=== PATIENT | female | born 1945 | race Two or more races ===

== ENCOUNTER 2016-10-10 15:55 | Inpatient (IN) | payer MEDICARE ==
--- NOTE | ~2016-10-10 | CN ---
Consultation Report [facility] [address] [place]. [address] NAME: LUCÍA BHATIA : 41 STATUS : ADM IN PAT#: [id number] AGE: 71 ADM/REG DATE : 10/10/16 MR#: [id number] REPORT SERV DATE: 10/17/16 DICTATED BY: BERNA TERRELL DATE: 10/16/16 REPORT STATUS : Draft TRANSCRIBED BY: MODL DATE: 10/16/16 NEPHROLOGY CONSULTATION NEPHROLOGY CONSULT FROM DR. BORJAS. CONSULT IS FOR ACUTE KIDNEY INJURY. DATE OF CONSULTATION: HISTORY OF PRESENT ILLNESS: Ms. Bhatia is a 71-year-old female, [place], who now resides in [place], [place]. She has a past history of diabetes, hypertension, dyslipidemia, acid reflux as well as hernia, retinal surgery, and obesity. She at home takes losartan, metformin, Zocor, and omeprazole and developed the onset of chest pain and orthopnea about six months ago, which progressed. She did not tell her family for some time, but as symptoms worsen, she was admitted to [facility] on 10/11/[address]-elevation MD. She had a cardiac catheterization, which showed multivessel disease with moderate mitral regurgitation and then EF preserved at 55%. She underwent a two-vessel CABG with Dr. Borjas on 10/13/2016 with a cross-clamp time of 49 minutes and did have an OZZY stage II with creatinine that ángel from baseline 0.8 up to 1.9. It has been steadily improving and fell to 1.8 yesterday and 1.56 this morning. Her urine output was low yesterday, and Prakash catheter was placed with immediate release of 300 mL of retained urine, and she has been urinating well since that time. Today, she was noted to have worsening hypernatremia and notably worsening hyperkalemia with potassium of 6. Of importance this was a fingerstick BG as she was difficult to stick. Repeat fingerstick BG second time was reported the potassium of 6.5, not grossly hemolyzed. The patient herself feels sleepy and complains of diffuse soreness and mild dyspnea. PAST MEDICAL HISTORY: reviewed in the HPI. MEDICATIONS: Reviewed in the HPI. Her recent medications she has been on an increasing doses of Lasix from 20 to 40 mg p.o. and was just given 40 mg of IV Lasix. ALLERGIES: SHE HAS NO KNOWN DRUG ALLERGIES. FAMILY HISTORY: Negative for renal disease. SOCIAL HISTORY: The patient is . She has eight children. She has no smoking or drinking and is primarily [place]an speaking. REVIEW OF SYSTEMS: Reviewed and negative except for pertinent positives in the HPI. PHYSICAL EXAMINATION: VITAL SIGNS: Temperature 96.8, pulse 100, blood pressure 132/74, O2 saturation of 94% on room air. Consultation Report [address] [place]. [address] NAME: LUCÍA BHATIA : 43 STATUS : ADM IN PAT#: [id number] AGE: 71 ADM/REG DATE : 10/10/16 MR#: [id number] REPORT SERV DATE: 10/17/16 DICTATED BY: BERNA TERRELL DATE: 10/16/16 REPORT STATUS : Draft TRANSCRIBED BY: NEAL DATE: 10/16/16 GENERAL: She is a tired-appearing female, in no immediate distress. She has normal work of breathing. She appears somewhat sedate. HEENT: Her sclerae anicteric. Mucous membranes moist. STERNOTOMY: Medially. CARDIOVASCULAR: S1, S2. Regular rate and rhythm without murmurs, rubs, or gallops. LUNGS: Somewhat diminished, but no wheezing. ABDOMEN: Soft, nontender. She has 1+ anasarca Prakash catheter with clear yellow urine. Today's chest x-ray is pending, yesterday, it did show worsening right-sided pleural effusion and some atelectasis. KUB showed moderate stool, but nonobstructive gas pattern. LABS: Sodium 128, down from 134, down from 143; potassium 6 up to 4.9; chloride 95; bicarb of 20; BUN 59; creatinine 1.56, which is down; glucose 367; magnesium is 2.9. ASSESSMENT AND PLAN: 1. Possible hyperkalemia, rule out spurious with fingersticks which I suspect given her steadily improving creatinine and her nonoliguric state. I think it is reasonable to give her Lasix to help kaliuresis as well as needed diuresis and I think 40 IV b.i.d. quite reasonable, keep Prakash catheter. She is also getting insulin now for her hyperglycemia, which should help temporize her hyperkalemia as well. I have written for one dose of calcium, pending third repeat lab and have asked the lab specifically again not to do fingerstick. She will also have afternoon labs to confirm that potassium is indeed okay. 2. Acute kidney injury with acute tubular necrosis status post CABG stage II improving. No current dialysis needs. Again I suspect her hyperkalemia is spurious and she is nonoliguric. 3. Coronary artery disease, status post coronary artery bypass graft. 4. Diabetes, hyperglycemia, insulin. 5. Hypertension. Controlled, not on [facility] or [facility]. Thank you very much for this consult. Case was discussed with nurse. Partners to follow. CLAUDIA/NEAL Berna Terrell MD / [id number] CC: MD Yas Tellez
--- NOTE | ~2016-10-10 | OP ---
Record Of Operation [address] [place]. [address] NAME: LUCÍA BHATIA : 43 STATUS : ADM IN PAT#: [id number] AGE: 71 ADM/REG DATE : 10/10/16 MR#: [id number] REPORT SERV DATE: 10/14/16 DICTATED BY: RANGEL BORJAS DATE: 10/13/16 REPORT STATUS : Draft TRANSCRIBED BY: MODL DATE: 10/13/16 DATE OF PROCEDURE: 10/13/2016 ATTENDING PHYSICIAN: Dr. Rangel Borjas. REFERRING PHYSICIAN: Dr. Thomas in [place]. TIMBER SPRINKLER: AUGIE Urbina. ANESTHESIOLOGIST: Dr. Jevon Hull. PREOPERATIVE DIAGNOSES: 1. STEMI. 2. Three-vessel coronary disease. 3. Diabetes mellitus. 4. Hypertension. 5. Hyperlipidemia. 6. Morbid obesity. 7. Mild to moderate MR. POSTOPERATIVE DIAGNOSES: 1. STEMI. 2. Three-vessel coronary disease. 3. Diabetes mellitus. 4. Hypertension. 5. Hyperlipidemia. 6. Morbid obesity. 7. Mild to moderate MR. OPERATION PROCEDURE PERFORMED: 1. Median sternotomy. 2. Extracorporeal circulation. 3. Urgent coronary artery bypass grafting x2, left internal mammary artery, left anterior descending, reverse greater saphenous vein graft to obtuse marginal #1. 4. Transesophageal echo. 5. Endoscopic vein harvest to right leg. 6. Prevena dressing placement. COMPLICATIONS: None. TUBES AND DRAINS: A 24-Albanian Ruddy to the left pleural space. A 32-straight mediastinal chest tube. Atrial and ventricular wires. POSTOPERATIVE CONDITION: Stable to the CVICU. Was weaned from cardiopulmonary bypass on no inotropic support. Cross-clamp 32 minutes. Record Of Operation [place] [address] [facility]. [address] NAME: LUCÍA BHATIA : 43 STATUS : ADM IN PAT#: [id number] AGE: 71 ADM/REG DATE : 10/10/16 MR#: [id number] REPORT SERV DATE: 10/14/16 DICTATED BY: RANGEL BORJAS DATE: 10/13/16 REPORT STATUS : Draft TRANSCRIBED BY: MODL DATE: 10/13/16 Total cardiopulmonary bypass time 49 minutes. URBAN which showed normal EF with mild MR, no AI, preserved wall motion. INTRAOPERATIVE FINDINGS: Very small diffusely diseased targets. Left anterior descending was approximately 1.75 mm. Obtuse marginal #1 was 1.75 mm. The diagonal was 1 mm in the PDA. There was no real PDA discernible on the epicardial surface of the heart. It was diffuse betsey disease. The vein was 3 to 4 mm and small. DETAILS OF CARDIOPULMONARY BYPASS GRAFT: 1. Graft #1. MANUEL to the left anterior descending was 1.75 mm graft. 2. Graft #2. Reverse greater saphenous vein graft to obtuse marginal #1. This was a 1.75 mm target. There was excellent Doppler signals both pre and post protamine. INDICATIONS FOR PROCEDURE: Ms. Bhatia is a 71-year-old female, who presented with acute coronary syndrome with NSTEMI, was taken to the laboratory tech, found to have a severe three- vessel disease. Her ST-segment elevations resolved in the laboratory tech prior to the catheterization lab in [facility]. She was ultimately transferred for definitive management to [place]. The patient was seen and evaluated. She had mild to moderate or moderate MR on her cath and a transesophageal echo was performed to better evaluate the valve, and showed pqnt-co-oraxixwx mitral disease with normal-appearing leaflets and good coaptation. I did not feel that it was appropriate to address this valve. Risks, benefits, and alternatives were discussed with the patient including but not limited to, bleeding, infection, stroke, , heart attack, need for future operations. All questions were answered. STS risk score was calculated and discussed with the patient. Risk less than 5% mortality and less than 20% mortality morbidity mortality were discussed with the patient. The patient was taken to the operating room. DETAILS OF PROCEDURE: The patient was brought to the operating room, placed supine on the operating room table. After satisfactory induction of general endotracheal anesthesia, she was prepped and draped in the usual sterile fashion. Median sternotomy was performed. Skin and subcutaneous tissues were divided. Clavipectoral fascia was divided. The sternum was opened in the midline. Sternal retractor was placed. Thymic tissue was divided in the midline. The pericardium was opened in the midline and at the diaphragm. Pericardial well was created. Ascending aorta was inspected. Sternal retractor was removed. The Rultract retractor was replaced and the internal mammary artery was harvested in a pedicle fashion and the left takeoff under the subclavian vein in the bifurcation of the diaphragm. Systemic heparinization was achieved. After 3 minutes, the pedicle was clipped and divided. The bifurcation of the diaphragm was infiltrated with papaverine. While this was ongoing, endoscopic vein harvest was then performed of the right leg. The Rultract retractor was removed. Sternal retractor was placed. A 24-Albanian Ruddy was placed through the left pleural space to exteriorize. The ascending aorta was cannulated through dual pursestring at the base of the innominate artery. Antegrade root vent cardioplegia tack was placed and a dual stage venous cannula was placed through a pursestring in the right atrial appendage. After documenting appropriate ACT, cardiopulmonary bypass was initiated. The targets were inspected. Targets were found as discussed in the findings. The heart was arrested with cold antegrade cardioplegia, switching to cold antegrade cardioplegia every 15 to 20 minutes Record Of Operation [place] [address] [facility] [place]. [address] NAME: LUCÍA BHATIA : 43 STATUS : ADM IN PAT#: [id number] AGE: 71 ADM/REG DATE : 10/10/16 MR#: [id number] REPORT SERV DATE: 10/14/16 DICTATED BY: RANGEL BORJAS DATE: 10/13/16 REPORT STATUS : Draft TRANSCRIBED BY: NEAL DATE: 10/13/16 throughout the remainder of the cross clamp. After arrest, heart was elevated and obtuse marginal #1 was identified. A soft spot was identified on the epicardial surface. It was opened and extended with coronary scissors and a running continuous anastomosis was performed using 8-0 Surgipro after spatulating and cutting the vein length. Vein was then measured, cut to length. Proximal aortotomy was performed, enlarged with a 4 mm punch and a running continuous anastomosis was performed using 6-0 Prolene. Vein marker was placed. The MANUEL was then brought through a wide V in the pericardium. The LAD was opened on the epicardial surface of the heart. It is a large coronary scissors. The mammary was cut to length spatulated and a running continuous anastomosis was performed using 8-0 Surgipro. Epicardial pedicle was attached to the heart in two places and then the bulldog was removed. There was excellent flow in the graft and pre and post the anastomosis graft. Vein graft was de-aired cross-clamp was removed. Atrial and ventricular pacing wires were placed. The ventilation was resumed. The patient was weaned from cardiopulmonary bypass without incident. Protamine was administrated. The patient was decannulated. All cannulation sites were oversewn with 4-0 Prolene. The thymic tissue was loosely reapproximated over the ascending aorta and the pericardium was loosely reapproximated over the right ventricle with 2-0 silks and a 32-Albanian chest tube was placed beneath the sternum. Hemostasis was obtained. The sternum was reapproximated using eight #6 sternal wires. Some of these were double wires. Clavipectoral fascia was reapproximated using running #1 StrataFix and the skin and subcutaneous tissues were closed using continuation of StrataFix with a Quill. Prevena dressing was placed as a dressing. The patient was then transferred to the CVICU in critical, stable condition. WMC/MODL Rangel Borjas MD / [id number] CC: MD DERRICK Tellez M.D.
--- NOTE | ~2016-10-10 | OP ---
Record Of Operation [facility] [address] [place]. [address] NAME: LUCÍA BHATIA : 41 STATUS : ADM IN [facility]#: [id number] AGE: 71 ADM/REG DATE : 10/10/16 MR#: [id number] REPORT SERV DATE: 10/19/16 DICTATED BY: KELLY KUMAR DATE: 10/19/16 REPORT STATUS : Draft TRANSCRIBED BY: MODL DATE: 10/19/16 DATE OF PROCEDURE: 10/19/2016 TIME: 1415 hours. PROCEDURE: Intubation. INDICATION: Cardiac arrest. DESCRIPTION OF PROCEDURE: Pre-oxygenated with 100% oxygen and monitored by blood pressure, EKG, and pulse oximetry. A #8 endotracheal tube passed under direct endoscopic vision to 23 cm. Tube seen to enter between cords. Confirmed by end-tidal CO2 monitor and chest x-ray. Good breath sounds bilaterally. Sat 100% post. PROCEDURE #2: Placement of right internal jugular venous line. INDICATION: For access emergent during arrest. DESCRIPTION OF PROCEDURE: Chlorhexidine prep and Xylocaine 1% used for local anesthesia. Right IJ entered with seeker needle. Catheter placed over guidewire via modified Seldinger technique to [address] Sterile technique used throughout. Confirmed by chest x-ray. CARLOS MANUEL/NEAL Kelly Kumar M.D. / [id number] CC: Rangel Boggs MD
--- NOTE | ~2016-10-10 | CN ---
Consultation Report [facility] [address] [place]. [address] NAME: LUCÍA BHATIA : 41 STATUS : ADM IN [facility]#: [id number] AGE: 71 ADM/REG DATE : 10/10/16 MR#: [id number] REPORT SERV DATE: 11/01/16 DICTATED BY: LISHA LIPSCOMB DATE: 10/31/16 REPORT STATUS : Draft TRANSCRIBED BY: MODL DATE: 10/31/16 CONSULTATION REPORT DATE OF CONSULTATION: 10/31/2016 REASON FOR CONSULT: Blue discoloration of left foot and toes. HISTORY: The patient is a 71-year-old female who has been at [facility] since 10/10/2016. She came in for STEMI and underwent urgent coronary bypass by Dr. Boggs. She was recovering on the floor, had an episode of bradycardia, and an episode of cardiac arrest with CPR. She was subsequently intubated and transferred to the ICU. She has since been deescalated and sent to the [facility]. I received a call from Dr. Denia martins about the condition of the patient's left foot. There was concern for a discoloration of the toes in the plantar surface. I was up here with family including the daughter. She has been with her mom almost daily. She should that the discoloration on the foot has been present for about a week and a half and at the plantar surface is actually improving and clearing up. There is discoloration of the first and fourth toes on the left that has not gotten better. I asked the daughter about any walking complaints prior to hospitalization and she endorsed that her mother said that she had "tired legs," but no discrete pain in the calf, thighs, or buttocks on ambulation. PAST MEDICAL HISTORY: Fra-yepopwy-uivyawqrb type 2 diabetes, hypertension, diabetic retinopathy, dyslipidemia, and gastroesophageal reflux disease. PAST SURGICAL HISTORY: Significant for retinal surgery and umbilical hernia repair. She has also just recently had coronary artery bypass grafting by Dr. Boggs. FAMILY HISTORY: Unremarkable. SOCIAL HISTORY: No tobacco, alcohol, or drug abuse. ALLERGIES: NONE. PHYSICAL EXAMINATION: VITAL SIGNS: Currently, her pulse is 116 and in atrial fibrillation, blood pressure is 125/75, respirations are 20, and oxygen saturations 91%. She is on nasal cannula oxygen. GENERAL: The patient is in the hospital bed in supine position. She is assisted in communication by her family members. She is somewhat lethargic, but easy to arouse. She does not complain of pain at any one site. HEENT: Her head is normocephalic and atraumatic. Pupils are equally round and reactive to light. RESPIRATIONS: Nonlabored, but shallow. NECK: Her neck is supple without JVD or lymphadenopathy. CHEST: Equal expansion bilaterally with some wheezes and coarse breath sounds. Consultation Report [place] [id number] [address] NAME: LUCÍA BHATIA : 41 STATUS : ADM IN [facility]#: [id number] AGE: 71 ADM/REG DATE : 10/10/16 MR#: [id number] REPORT SERV DATE: 11/01/16 DICTATED BY: LISHA LIPSCOMB DATE: 10/31/16 REPORT STATUS : Draft TRANSCRIBED BY: NEAL DATE: 10/31/16 ABDOMEN: Obese, soft, and nondistended. VASCULAR: She has palpable radial pulses bilaterally. Her femoral pulses are palpable bilaterally. On the affected foot, there is a purple discoloration of the first toe and the fourth toe. There is some mottling at the plantar aspect confined to the first 1 to 2 cm from the base of the metatarsals. According the family, this is improved from last week. She has easily to discern Doppler signals at the posterior tibial and peroneal, the peroneal being biphasic. IMAGING: She had a carotid duplex at the end of September, which did not show carotid stenosis. She has recently had a venous duplex showing right brachial and basilic vein DVT associated with PICC line. IMPRESSION AND PLAN: The patient is a 71-year-old diabetic female with some discoloration of her toes after cardiac surgery. She is on Coumadin and therapeutic INR of greater than 2. Currently, she is in the IMCU and recovering from her surgery and her code event. There is no indication for acute surgical intervention from a vascular standpoint. We will monitor her progress during her hospital stay, and when she is more stable, we may consider arteriography if her foot does not improve. I appreciate the consult. ISIDRO/NEAL Lisha Lipscomb MD / [id number] CC: Rangel Boggs MD
--- NOTE | ~2016-10-10 | OP ---
Record Of Operation [facility] [address] [place] [address] NAME: LUCÍA BHATIA : 41 STATUS : ADM IN [facility]#: [id number] AGE: 71 ADM/REG DATE : 10/10/16 MR#: [id number] REPORT SERV DATE: 11/01/16 DICTATED BY: ANTOINE WATERS DATE: 11/01/16 REPORT STATUS : Draft TRANSCRIBED BY: MODL DATE: 11/01/16 DATE OF PROCEDURE: 11/01/2016 TITLE OF PROCEDURE: Arterial line placement. INDICATION: Cardiac arrest and hemodynamic monitoring. PROCEDURE NOTE: Post cardiopulmonary resuscitation, arterial access is needed for hemodynamic monitoring. The patient's left groin was prepped and draped in a sterile fashion. An Arrow arterial line was introduced into the left femoral artery, not under ultrasound guidance. The catheter was threaded over the guidewire. The needle was removed with appropriate pulsatile blood return. The catheter was then sutured into place to the skin, and a sterile dressing applied. DEON/NEAL Antoine Waters MD / [id number] CC: Rangel Boggs MD
--- NOTE | ~2016-10-10 | CN ---
Consultation Report [facility] [address] [place]. [address] NAME: LUCÍA BHATIA : [birth year] STATUS : ADM IN [facility]#: [id number] AGE: 71 ADM/REG DATE : 10/10/16 MR#: [id number] REPORT SERV DATE: 10/11/16 DICTATED BY: AZAM LOZA DATE: 10/11/16 REPORT STATUS : Draft TRANSCRIBED BY: MODL DATE: 10/11/16 CARDIOLOGY CONSULTATION DATE OF CONSULTATION: 10/11/2016 REQUESTING PHYSICIAN: Rangel Boggs M.D. REASON FOR CONSULTATION: Evaluation of mitral regurgitation in a 71-year-old woman with recently diagnosed multivessel coronary artery disease. HOSPITAL COURSE: Ms Bhatia is a 71-year-old woman who is a Citizen Of [place] National and Sudanese- speaking only. The patient recently presented to [facility], where she was apparently diagnosed with non-ST segment elevation myocardial infarction. The patient underwent cardiac catheterization and was found to have multivessel coronary artery disease. The disease described in the catheterization report is of a diffuse and severe nature. The patient also carries a diagnosis of type 2 diabetes. Due to her multivessel disease and diagnosis of diabetes, the patient was transferred to [facility] for consideration of coronary artery bypass grafting surgery. An echocardiogram report from [place] indicates the presence of moderate mitral valve regurgitation with mitral annular calcification. The Cardiology Service has been consulted to perform transesophageal echocardiography for more thorough evaluation of the patient's mitral valve. At this time, the patient is without cardiovascular complaints. She has been on a nitroglycerin drip for relief of chest pain, but at this time, she reports no significant dyspnea or chest pain. PAST MEDICAL HISTORY: 1. Noninsulin-dependent type 2 diabetes. 2. Hypertension. 3. Diabetic retinopathy. 4. Dyslipidemia. 5. Gastroesophageal reflux disease. PAST SURGICAL HISTORY: Significant for retinal surgery, not otherwise specified and umbilical hernia repair. FAMILY HISTORY: Noncontributory. 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 She has eight living children. She has no significant history of tobacco, alcohol, or drug use. ALLERGIES: THE PATIENT HAS NO KNOWN MEDICATION ALLERGIES. Consultation Report [facility] [address] [place]. [address] NAME: LUCÍA BHATIA DOB: [birth year] STATUS : ADM IN PAT#: [id number] AGE: 71 ADM/REG DATE : 10/10/16 MR#: [id number] REPORT SERV DATE: 10/11/16 DICTATED BY: AZAM LOZA DATE: 10/11/16 REPORT STATUS : Draft TRANSCRIBED BY: NEAL DATE: 10/11/16 HOME MEDICATIONS: The patient's home medications include losartan 50 mg p.o. daily, metformin 850 mg p.o. twice daily, omeprazole 20 mg p.o. daily, and simvastatin 40 mg p.o. at bedtime. REVIEW OF SYSTEMS: A complete ten-system review was performed with the assistance of the patient's daughter, who assists as a floor framer. This is noncontributory except for the pertinent positives and negatives noted in the history of present illness above. PHYSICAL EXAMINATION: VITAL SIGNS: Temperature is 98.1 degrees Fahrenheit, blood pressure is 126/60 mmHg, heart rate is 63 beats per minute and regular, respirations 18, and oxygen saturation is 99% on a 2 L nasal cannula. CONSTITUTIONAL: The patient is an obese woman, in no acute distress. EYES: PERRL, EOMI, clear conjunctiva. HEAD/MNT: NCAT with moist mucous membranes and grossly normal hard and soft palate. NECK: Supple with no obvious thyromegaly or lymphadenopathy CARDIOVASCULAR: There is a regular rhythm with a normal S1 and a physiologically split second heart sound. There is a very faint 1/6 regurgitant murmur noted at the axilla, though it is heard very faintly throughout the rest of the precordium. PULMONARY: Clear to auscultation bilaterally with no wheezing, rales, rhonchi, or dullness to percussion. ABDOMINAL: Soft, non-tender, non-distended with no hepatosplenomegaly noted. EXTREMITIES: No clubbing, cyanosis or edema. MUSCULOSKELETAL: Grossly normal strength and range of motion in all extremities. INTEGUMENTARY: Skin appears intact with no bruises, wounds or active lesions noted NEURO/PSYCH: Alert and oriented x3, with no dysarthria, facial droop or lateralizing weakness noted. TWELVE-LEAD EKG: The 12-lead EKG shows sinus rhythm with diffuse ST/T-wave changes in the precordial leads suggestive of ischemia. The QTc is borderline prolonged at 473 milliseconds. LABORATORY DATA: Metabolic profile shows a sodium of 142, potassium 4.0, chloride is 106, CO2 is 28, BUN 19, creatinine is 0.8. Glucose is 141, calcium 8.1, albumin is 3.0. LFTs are grossly normal. CBC shows a white blood cell count of 9.9, hemoglobin 9.9, hematocrit 30, and platelets 252. INR is 1.1. CHEST X-RAY: The chest x-ray shows clear lungs with no acute cardiopulmonary process. Mild calcification of the aortic knob is noted. ASSESSMENT AND PLAN: 1. Multivessel coronary artery disease: The patient awaits coronary artery bypass grafting surgery. She has been started on aspirin 81 mg p.o. daily. The patient is on atorvastatin 40 mg p.o. at bedtime. She has been started on amiodarone for prophylaxis Consultation Report [address] [address] NAME: LUCÍA BHATIA : 41 STATUS : ADM IN [facility]#: [id number] AGE: 71 ADM/REG DATE : 10/10/16 MR#: [id number] REPORT SERV DATE: 10/11/16 DICTATED BY: AZAM LOZA DATE: 10/11/16 REPORT STATUS : Draft TRANSCRIBED BY: NEAL DATE: 10/11/16 of atrial fibrillation. We will work up mitral regurgitation as outlined below and proceed with surgery this or as per recommendations of the Cardiovascular Surgery Service. 2. Mitral regurgitation: A transesophageal echocardiogram will be performed tomorrow morning. The patient did have a full breakfast this morning. Surgery has been delayed until morning. Further recommendations to follow. 3. Type 2 diabetes: Internal Medicine is following. 4. Hypertension: The patient's blood pressure is reasonably well controlled at this time. Thank you for allowing me to participate in the care of Ms Bhatia. The Cardiology Service will continue to follow the patient closely during this hospitalization. SINGH/NEAL Azam Loza MD / [id number] CC: MD ANGELITA Tellez JULIA
--- NOTE | ~2016-10-10 | OP ---
Record Of Operation [facility] [address] [place] [address] NAME: LUCÍA BHATIA : 41 STATUS : ADM IN [facility]#: [id number] AGE: 71 ADM/REG DATE : 10/10/16 MR#: [id number] REPORT SERV DATE: 11/01/16 DICTATED BY: ANTOINE WATERS DATE: 11/01/16 REPORT STATUS : Draft TRANSCRIBED BY: MODL DATE: 11/01/16 DATE OF PROCEDURE: 11/01/2016 TITLE OF PROCEDURE: Endotracheal intubation. INDICATION: Respiratory failure and cardiac arrest. PROCEDURE NOTE: The patient was in a flat position, undergoing cardiopulmonary resuscitation. No sedation was needed. The patient was ventilated using an Ambu bag. A GlideScope was used and inserted into the oropharynx, at which time there was a grade 2 view of the vocal cords. A 7.5-Austrian endotracheal tube was inserted and visualized going to the vocal cords. The stylet was removed. Colorimetric change was visualized on the CO2 meter. Endotracheal tube was placed at 23 cm measured at the teeth. I was present for the entire procedure. Chest x-ray is ordered to assess for pneumothorax and verify endotracheal tube placement. The patient tolerated the procedure well. DEON/NEAL Antoine Waters MD / [id number] CC: Rangel Boggs MD
--- NOTE | ~2016-10-10 | CN ---
Consultation Report [facility] [address] [place]. [address] NAME: LUCÍA BHATIA : 41 STATUS : ADM IN [facility]#: [id number] AGE: 71 ADM/REG DATE : 10/10/16 MR#: [id number] REPORT SERV DATE: 10/11/16 DICTATED BY: YOLANDA JAFFE DATE: 10/10/16 REPORT STATUS : Draft TRANSCRIBED BY: MODL DATE: 10/10/16 CONSULTATION REPORT DATE OF CONSULTATION: 10/10/2016 REASON FOR CONSULTATION: Consulted for diabetes management. REQUESTING PHYSICIAN: Juan Luis Manuel NP, for Dr. Michael Flannery. IDENTIFYING DATA: PCP, Dr. Yas Guidry. LEAD MAINTENANCE TECHNICIAN: Jayce Thomas M.D. HISTORY OF PRESENT ILLNESS: This is a pleasant 71-year-old Kos[place] female who presented to [facility] with chest pain and shortness of breath. Her EKG there showed some ST elevation in AVR, V1 and ST depression in inferior leads. She has no previous cardiac history according to discussion with the daughter. We have been consulted to help manage her blood sugars preop and postoperatively. It appears that the patient takes metformin at home and also on insulin for which she was not sure exactly what dose. The patient's history was obtained through interview with the daughter as Ms Lucía Bhatia does not speak any Palestinian. PAST MEDICAL HISTORY: 1. Diabetes type 2. 2. Hyperlipidemia. 3. GERD. 4. Diabetic retinopathy. 5. Chest pain with ID on this admission to [facility]. HOME MEDICATIONS: 1. Cozaar 50 mg p.o. daily. 2. Metformin 850 mg p.o. with breakfast and supper. 3. Prilosec 20 mg p.o. daily. 4. Zocor 40 mg p.o. at bedtime, and upon discussion with the daughter, she relates that the patient takes Humulin regular insulin 15 units t.i.d. with meals. 5. She also relates that the patient takes Lantus 60 units at h.s. at 5:00 p.m. ALLERGIES: NO KNOWN ALLERGIES. SOCIAL HISTORY: The patient is for approximately 58 years, lives in a single-level home. She lives with one of her daughters, and she travels back and forth from [facility] to [place]. No smoking, alcohol, or illicit drug use. She has 12 children, eight of whom are still living. Consultation Report [place] [id number] [facility] [place]. [address] NAME: LUCÍA BHATIA : 41 STATUS : ADM IN PAT#: [id number] AGE: 71 ADM/REG DATE : 10/10/16 MR#: [id number] REPORT SERV DATE: 10/11/16 DICTATED BY: YOLANDA JAFFE DATE: 10/10/16 REPORT STATUS : Draft TRANSCRIBED BY: MODToib DATE: 10/10/16 FAMILY HISTORY: Mother was at 82 years old. Her father was at 55 years old. Daughter relates that there is an unknown history because the parents did not seek any medical treatment. The patient has one brother and two half brothers, one brother is . She had four sisters for which one sister is . PAST SURGICAL HISTORY: 1. Eye surgery in [place] for cataracts in 2014. 2. Hernia repair approximately 17 years ago. 3. The daughter states that the patient had all her children naturally at home. REVIEW OF SYSTEMS: Negative other than what is in HPI. The patient complains of no chest pain. No shortness of breath. No nausea and vomiting. No abdominal pain. No fever. Displays no agitation at the present time. PHYSICAL EXAMINATION: VITAL SIGNS: From today, blood pressure 144/66, respiratory rate 19, heart rate 63, and O2 saturation 98%. GENERAL: This is an obese, Kosovan, elderly female, resting in bed, in no acute distress. Her daughter is asking questions regarding this interview, the patient speaks no Palestinian. NEURO: Her head is atraumatic and normocephalic. She is alert and oriented x3. Her cranial nerves II through XII are intact. Mood is pleasant and appropriate. NECK: Supple. Trachea is midline. No JVD noted. No obvious thyromegaly or lymphadenopathy. EENT: Her sclerae are nonicteric. Pupils are equal and reactive to light. Nares are patent. Mucous membranes moist. Tongue midline without deviation. Soft palate rises equally on phonation. CHEST: No tenderness to palpation. LUNGS: Clear to auscultation bilaterally. She has normal respiratory effort. CARDIOVASCULAR: S1 and S2. Positive murmur. On telemetry, she runs a sinus rhythm with a depressed T-wave and a rate of 63. ABDOMEN: Obese, soft, and nontender with bowel sounds active. No organomegaly palpable. Last bowel movement was on 10/09/2016. EXTREMITIES: Normal distal pulses, slightly diminished. No edema. No calf tenderness. SKIN: Warm and dry. No unusual rashes or lesions. Normal color and turgor. PSYCH: The patient is pleasant and cooperative. The daughter does relate that the patient is very nervous about upcoming surgery. LABORATORY DATA: Pending. There are some labs ordered per Juan Luis Manuel and Dr. Flannery. The labs have just resulted. Sodium is 140, potassium is 4.4, chloride is 104, CO2 is 29, BUN is 19, creatinine 0.85, GFR 68, glucose 193, calcium 8.1, and magnesium 1.9. White blood cell 10.5, red blood cell 3.49, hemoglobin 9.6, and hematocrit 29.9. PTT 85.6, PT 14.9, and INR 1.2. Platelet count 258. Consultation Report [address] [address] NAME: LUCÍA BHATIA : 41 STATUS : ADM IN PAT#: [id number] AGE: 71 ADM/REG DATE : 10/10/16 MR#: [id number] REPORT SERV DATE: 10/11/16 DICTATED BY: YOLANDA JAFFE DATE: 10/10/16 REPORT STATUS : Draft TRANSCRIBED BY: NEAL DATE: 10/10/16 On 10/09/2016, chest x-ray was obtained at [facility], which displayed mild cardiomegaly and interstitial edema. On 10/10/2016, EKG displays normal sinus rhythm, T- wave abnormality, consider lateral ischemia, prolonged QT, and displays an abnormal EKG. Left heart left heart catheterization at [facility] on 10/09/2016 showed severe triple-vessel diffuse coronary artery disease, typical of diabetes with heavily calcified vessels. The LAD showed: 1. Proximal 80%. 2. Mid 99%. 3. Diagonal 80% to 90%. 4. Circumflex 80% to 90%. 5. RCA mid 80%. Distal RCA is COIL WINDER HAND with LVEH 55%, noted severely calcified mitral valve and moderate regurgitation. ASSESSMENT AND PLAN: 1. Diabetes type 2. The patient is normally on metformin at home and insulin. The daughter states that she normally takes Humulin regular insulin 15 units t.i.d. with meals and Lantus 60 units subcutaneously daily at 5:00 p.m. along with metformin 850 mg p.o. with breakfast and supper. The patient is on 1800-ADA diet. We will have nurse educator discuss diet and monitoring of the blood sugars at home, which the daughter will need to be available for translation. The patient has a hemoglobin A1c ordered. Fingerstick blood sugars are a.c. and h.s. with a sliding scale level 2 at present time and the metformin will be held. 2. Chest pain. Aware. The patient is admitted by Dr. Michael Flannery for chest pain and probable planned procedure on 10/11/2016, a CABG with VasoView URBAN, possible mitral valve repair or replacement. The patient is managed by Cardiology presently on a heparin and nitroglycerin drip and the patient will also receive Lopressor p.o. q.12 hours per Cardiology. 3. Hyperlipidemia. Aware. The patient is on Zocor at home. The patient is placed on Lipitor 40 mg p.o. at h.s. on admission. 4. Gastroesophageal reflux disease. Aware. The patient is on Prilosec and we will continue Prilosec daily. The a.m. team to follow the patient regarding diabetes. If the patient is scheduled for surgery, anticipate the patient will be placed on an insulin drip postoperatively until she is fully awake and able to the eat meals. Hospitalist may need to evaluate the use of the regular insulin with meals and her Lantus at night depending on results of blood sugars and also her hemoglobin A1c level. 5. The Hospitalist Group would like to take the time to thank you for this consultation. Please let us know if we could be of any further assistance. ARTURO Yolanda Jaffe NP Consultation Report [address] [place]. [address] NAME: LUCÍA BHATIA : 41 STATUS : ADM IN PAT#: [id number] AGE: 71 ADM/REG DATE : 10/10/16 MR#: [id number] REPORT SERV DATE: 10/11/16 DICTATED BY: YOLANDA JAFFE DATE: 10/10/16 REPORT STATUS : Draft TRANSCRIBED BY: NEAL DATE: 10/10/16 / [id number] CC: Michael Flannery M.D.
--- NOTE | ~2016-10-10 | DS ---
Discharge Summary [facility] [address] [place]. [address] NAME: LUCÍA BHATIA : 41 STATUS : DIS IN PAT#: [id number] AGE: 71 ADM/REG DATE : 10/10/16 MR#: [id number] REPORT SERV DATE: 11/15/16 DICTATED BY: RANGEL BORJAS DATE: 11/14/16 REPORT STATUS : Draft TRANSCRIBED BY: NEAL DATE: 11/14/16 Data Collection from hospitalization DISCHARGE DIAGNOSES: 1. Efp-KX-uebekotsu myocardial infarction. 2. Three-vessel coronary artery disease. 3. Diabetes mellitus. 4. Hypertension. 5. Hyperlipidemia. 6. Morbid obesity. 7. Kxio-lk-usnygegv mitral regurgitation. 8. Gastroesophageal reflux disease. 9. Diabetic retinopathy. CONSULTATIONS: 1. Yolanda Flores NP. 2. Keith Loza MD. 3. Chaparro Hansen MD. 4. Jay King M.D. 5. Neymar Lipscomb MD. 6. Dean Kumar M.D. PROCEDURES PERFORMED: 1. Median sternotomy, extracorporeal circulation. 2. Urgent coronary artery bypass grafting x2 with MANUEL to the LAD, reverse greater saphenous vein graft to the obtuse marginal. 3. Transesophageal echocardiogram. 4. Endoscopic vein harvest to the right leg, Prevena dressing placement, 10/13/2016. 5. Endotracheal intubation, 10/19/2016. 6. Endotracheal intubation, 11/01/2016. 7. Central venous catheter placement, 11/01/2016. 8. Arterial line placement, 11/01/2016. 9. Carotid blood flow study, 10/11/2016. 10.Renal ultrasound, 10/31/2016. 11.Venous Doppler ultrasound of the right upper extremity, 10/31/2016. 12.Gallbladder ultrasound, 11/01/2016. 13.Duplex lower extremity arterial ultrasound, 11/01/2016. DISPOSITION: [facility], [place], [place]. HOSPITAL COURSE: This is a 71-year-old, , hypertensive, diabetic female, who has no prior history of coronary artery disease. Her daughter noticed that she and the rest of the siblings had found out recently that her mother had been having chest pain intermittently over the past at least 7 months since February or January of last year. More recently, this had occurred at night and awakened her from a sound sleep with a feeling of profound dyspnea. On the day prior to this admission she had the onset of chest discomfort while at rest associated with shortness of breath, dyspnea, nausea but no vomiting or diaphoresis. Her family brought her to the emergency department and EKG showed ST elevation in AVR and V1 and Discharge Summary [id number] [place]. [address] NAME: LUCÍA BHATIA : 41 STATUS : DIS IN PAT#: [id number] AGE: 71 ADM/REG DATE : 10/10/16 MR#: [id number] REPORT SERV DATE: 11/15/16 DICTATED BY: RANGEL BORJAS DATE: 11/14/16 REPORT STATUS : Draft TRANSCRIBED BY: NEAL DATE: 11/14/16 a code STEMI was called by the emergency room physician. There was significant ST depression in the inferolateral leads. She had been taken to the [facility] and coronary arteriogram demonstrated significant three-vessel calcific coronary artery disease, moderate mitral regurgitation, and calcification of the mitral valve and ejection fraction of about 55%. It was felt the patient may need to undergo coronary artery bypass grafting. She was transferred here and admitted to the hospital for further evaluation and treatment. Upon admission, she was seen by Yolanda Flores NP, regarding diabetes management. It appears that the patient takes metformin at home and also is on insulin. She was not sure exactly what dose. The patient was placed on a diabetic diet. She was going to undergo diabetes education and diet would be discussed as well as monitoring of her blood sugars at home. Hemoglobin A1c was going to be checked. Level 2 sliding scale insulin was started. Metformin was held. The patient is on Zocor at home for hyperlipidemia. Lipitor was started. She was presently being managed on heparin and nitroglycerin drip. She had also received Lopressor. Plans were being made for her to proceed with surgical intervention. The following day, she was seen by Dr. Keith Loza for evaluation of mitral regurgitation in a patient with recently diagnosed multivessel coronary artery disease. Echocardiogram had indicated the presence of moderate mitral valve regurgitation with mitral annular calcification. There were no cardiovascular complaints. She had been on a nitroglycerin drip for relief of chest pain. At this time, she reported no significant dyspnea or chest pain. Chest x-ray showed clear lungs with no acute cardiopulmonary process. There was mild calcification on the aortic knob noted. Her blood pressure was reasonably well controlled at this time. The following day, there had been no issues overnight. She had no chest pain. She was still on low-dose nitroglycerin drip. A carotid blood flow study was performed. On 10/12/2016, transesophageal echocardiogram was performed by Dr. Gustabo Carlson. There was mild to potentially mild-moderate central mitral regurgitation. Bety I classification with mildly dilated mitral annulus. There was mild left atrial enlargement. There was normal left ventricular size with preserved ejection fraction of 55- 60%. There was an intact interatrial septum. Levemir was increased. On 10/13/2016, the patient was taken to the operating room where she underwent the above-mentioned procedure. She tolerated this well. There were no complications. Postoperatively, she was extubated. She had a hemoglobin A1c of 8.7. She was on Levophed. On postop day #1, she was up sitting in a chair. Long acting insulin was going to begin. Chest x-ray showed mild pulmonary vascular congestion. She was in a normal sinus rhythm. Metoprolol would be held until Levophed was off. Amiodarone was continued. Aspirin and atorvastatin were continued. On 10/15/2016, she had no new complaints. She was going to be transferred to the floor. Chest tube was removed. Her sternum was stable. She had no shortness of breath at this time. She did have some appropriate sternal pain. Creatinine level had increased and was now 1.78. She was seen by Dr. Chaparro Hansen regarding acute kidney injury. Creatinine had risen to 1.9. It had steadily improved and decreased to 1.8 on the day prior to this consult and was now 1.56. Her urine output had been low. A Prakash catheter was placed with immediate release of 300 mL of retained urine and she has been urinating well since that time. She developed worsening hypernatremia and notably worsening hyperkalemia with a potassium level of 6. The patient has acute kidney injury with acute tubular necrosis, status post coronary artery bypass grafting stage II, improving. There were no current dialysis needs. It was suspected that her hyperkalemia was spurious and she was Discharge Summary [address] [place]. [address] NAME: [place]UCÍA BHATIA : 41 STATUS : DIS IN PAT#: [id number] AGE: 71 ADM/REG DATE : 10/10/16 MR#: [id number] REPORT SERV DATE: 11/15/16 DICTATED BY: RANGEL BORJAS DATE: 11/14/16 REPORT STATUS : Draft TRANSCRIBED BY: NEAL DATE: 11/14/16 nonoliguric. Next day, she was in no acute distress. She did have some rhonchi in her lungs. Lasix has been stopped. Oral bicarb continued. She had some lower abdominal discomfort at the Prakash site. She had no chest pain or other complaints. She was in atrial fibrillation. She did seem lethargic. Long-acting insulin was increased. IV insulin was stopped. On 10/18/2016, she had some surgical site pain. She still felt weak and it was difficult for her to mobilize. Creatinine level was 1.12. She was evaluated by Physical Therapy. Renal function seemed to have improved. She was still on atrial fibrillation. Her urinalysis was found to be positive for urinary tract infection. She seemed somewhat more alert but did report some hallucinations. On the , she was seen by Dr. Dean Kumar. A code blue had been called. The patient was up with Physical Therapy, then went sinus rhythm-bradycardia with collapse. She was unresponsive. Pulse was difficult to palpate. Chest compressions were started. The patient required intubation. Dr. Kumar had intubated the patient. The patient stabilized and had purposeful movement bilaterally. She was transferred to the Cardiovascular ICU. INR level was 3.1. EKG revealed a junctional rhythm. Echocardiogram showed no obvious effusion. Blood cultures were going to be obtained. She was felt to have possible sepsis. Zosyn was continued. On 10/20/2016, Zosyn was continued for her ESBL urinary tract infection. She remained intubated. Renal function had worsened. ATN was suspected. INR level was 3.8. She was currently in a sinus rhythm but during the night she went back into atrial fibrillation with rapid ventricular response. She was on amiodarone. She had good diuresis. Blood pressure was controlled. Potassium level had improved. On 10/22/2016, white count was now 23.1. She had rhonchi in both lungs. Potassium supplementation was given. ECG revealed atrial fibrillation. Zosyn was changed to meropenem and she was found to have ESBL E. coli as well as fever and elevated white blood cell count. On 10/22/2016, she had been extubated. Chest x-ray showed bilateral effusions. White count was still elevated at 23.4. She had some slight throat soreness, had vascular congestion. Coumadin was held that evening. On the , she was in no acute distress. She still has bilateral rhonchi. Supportive care continued. Renal function was stable at this time. She was on Vapotherm. She was hemodynamically stable. Blood cultures were obtained. We were going to check liver function tests. On , the patient was in atrial fibrillation with heart rate in the 80-90 beat per minute range. She appears to have improved. She had no shortness of breath. She was grossly oriented. She had 1+ anasarca. Diuretics were continued. The next day, INR had decreased to 2.7 from 4.3. She remained very fatigued. She is otherwise without complaints. She was able to be up sitting in a chair. Merrem was continued. Liver function tests had decreased and PICC line was inserted. She complained of some diffuse pain/discomfort. She was making slow recovery. Acute kidney injury was improving. Her white blood cell count was 24. Her plan of care was discussed with both Cardiology and Renal. Her blood pressure was elevated. There was a slight area of dehiscence of the sternal wound. Hemoglobin was stable. Supportive care continued. On the , she was a little tachypneic. She still felt tired and weak. Had some auditory wheezing. Metoprolol was increased. Oral amiodarone continued. On 10/28/2016, she still felt fatigued but overall seemed to be improving. Oral Bumex continued. She was evaluated by Occupational Therapy. She has not had a bowel movement in Discharge Summary [address] [place]. [address] NAME: LUCÍA BHATIA : 41 STATUS : DIS IN PAT#: [id number] AGE: 71 ADM/REG DATE : 10/10/16 MR#: [id number] REPORT SERV DATE: 11/15/16 DICTATED BY: RANGEL BORJAS DATE: 11/14/16 REPORT STATUS : Draft TRANSCRIBED BY: MODL DATE: 11/14/16 several days. She was still sore all over. She denied shortness of breath. She was seen by Dr. Jay King regarding leukocytosis. She has been found to have a positive urine culture for ESBL E. coli and was status post treatment with meropenem since 10/22/2016. She has a history of recurrent urinary tract infections but had never been told the reason for that. She had no prior urinary symptoms prior to this admission. She appeared to constipated. Chest x-ray showed persistent bibasilar consolidations or atelectasis. It was felt that we could stop the meropenem now after about seven days of treatment. Renal ultrasound would be performed to rule out the presence of kidney stones or some partial obstruction. INR level was 1.9. Levemir was increased. UB revealed extensive colon fecal stasis. She still had a cough with little sputum. She did have a bowel movement. On the , she was seen by Dr. Neymar Lipscomb regarding a blue discoloration of the left foot and toe. There was concern regarding discoloration of the toes on the plantar surface. The patient's daughter said this discoloration on the foot had been present for about a week and a half and as the plantar surface was actually improving and clearing up, there was discoloration of the first and fourth toes on the left that had not gotten better. The daughter was asked about any walking complaints prior to hospitalization and she stated that her mother said she had "tired legs" but no discrete pain in the calf, thighs or buttocks on ambulation. She is on Coumadin and INR level was therapeutic. There was no indication for acute surgical intervention from a vascular standpoint. He was going to monitor her progress during her hospital stay. When she was more stable, we may consider arteriography if her foot did not improve. A renal ultrasound was performed as well as a venous Doppler ultrasound of the right upper extremity. There was deep venous thrombosis in the proximal right brachial vein as well as superficial venous thrombus in the patient's right basilic vein surrounding the right upper extremity PICC line. On the , gallbladder ultrasound was performed as well as duplex lower extremity arterial ultrasound. There were decreased waveforms at the left ankle and foot and right foot with normal ankle-brachial indices. Findings were consistent with small vessel disease. INR level was 2.7. Sliding scale insulin continued. Her blood sugars were fluctuating. Liver function tests had increased. Her metoprolol was increased and Sabina العراقي was called and Dr. Jevon Waters performed endotracheal intubation as well as central venous catheter placement and arterial line placement. Chest compressions were being performed and she was unable to maintain a stable rhythm. Her EKG suggested major events. She was not responding to epinephrine drip. She continued to drop blood pressure and pulse. Her family was brought to the bedside who said goodbye. The patient was taken off the ventilator. There was no response to commands. She was in asystole on the monitor. The patient was without blood pressure, pulse, or respirations. She was pronounced at 1645 hours and released to the above-mentioned home. Information collected by: Tara Allan I submit the above information as my discharge summary. TG/NEAL Rangel Borjas MD / [id number] Discharge Summary [address] [address] NAME: LUCÍA BHATIA : 41 STATUS : DIS IN PAT#: [id number] AGE: 71 ADM/REG DATE : 10/10/16 MR#: [id number] REPORT SERV DATE: 11/15/16 DICTATED BY: RANGEL BORJAS DATE: 11/14/16 REPORT STATUS : Draft TRANSCRIBED BY: NEAL DATE: 11/14/16 CC: MD DERRICK Tellez MD Paul Cornea, M.D. Jeffrey S. Horn, MD John Carter Hemphill, MD
--- NOTE | ~2016-10-10 | OP ---
Record Of Operation [facility] [address] [place]. [address] NAME: LUCÍA BHATIA : 41 STATUS : ADM IN PAT#: [id number] AGE: 71 ADM/REG DATE : 10/10/16 MR#: [id number] REPORT SERV DATE: 11/01/16 DICTATED BY: ANTOINE WATERS DATE: 11/01/16 REPORT STATUS : Draft TRANSCRIBED BY: MODL DATE: 11/01/16 DATE OF PROCEDURE: 11/01/2016 TITLE OF PROCEDURE: Central venous catheter placement. INDICATION: Cardiac arrest and shock. PROCEDURE NOTE: The patient had just undergone cardiopulmonary resuscitation and needs central access. The patient's right groin was prepped and draped in a sterile fashion. No lidocaine was needed to anesthetize the area. A triple-lumen catheter was introduced into the right common femoral vein. Using Seldinger technique under ultrasound guidance, the catheter was threaded smoothly over the guidewire and appropriate blood return was obtained. Each lumen of the catheter was evacuated of air and flushed with sterile saline. The catheter was then sutured in place to the skin and a sterile dressing applied. DEON/NEAL Antoine Waters MD / [id number] CC: Rangel Boggs MD
--- NOTE | ~2016-10-10 | HP ---
History And Physical [address] [place]. [address] NAME: LUCÍA BHATIA : 41 STATUS : ADM IN [facility]#: [id number] AGE: 71 ADM/REG DATE : 10/10/16 MR#: [id number] REPORT SERV DATE: 10/11/16 DICTATED BY: JUAN LUIS PANG DATE: 10/10/16 REPORT STATUS : Draft TRANSCRIBED BY: MODTobi DATE: 10/10/16 DATE OF ADMISSION: 10/10/2016 CHIEF COMPLAINT: Chest pain. HISTORY OF PRESENT ILLNESS: This is a 71-year-old , hypertensive, diabetic female with no prior history of coronary artery disease. However, her daughter notes that she and the rest of the siblings found out recently that their mother has been having chest pain intermittently over the past at least 7 months since February or January of last year. More recently, this has occurred at night, awakening her from a sound sleep with a feeling of profound dyspnea. Yesterday, she had onset of chest discomfort while at rest associated with shortness of breath, dyspnea, nausea but no vomiting, and diaphoresis. The family brought her to the emergency department where EKG showed ST elevation in aVR and V1, and code STEMI was called by the ER physician. There was significant ST depression in inferolateral leads. [facility] was [facility] the [facility], and coronary arteriogram demonstrated significant 3-vessel calcific coronary artery disease, moderate mitral regurgitation, and calcification of the mitral valve and ejection fraction about 55%. We were asked to see for possible coronary artery bypass grafting, and the patient has been maintained on nitroglycerin and heparin. She denies any pain since yesterday morning when she presented to the emergency department at [facility]. PRIOR MEDICAL HISTORY: Significant for uoi-zossuse-izmhuijie diabetes mellitus type 2, hypertension, diabetic retinopathy, hyperlipidemia, and gastroesophageal reflux disease. PRIOR SURGICAL HISTORY: Significant for retinal surgery and umbilical herniorrhaphy. ALLERGIES: NONE KNOWN. MEDICATIONS: Include losartan 50 mg p.o. daily, metformin 850 mg p.o. with breakfast and supper, omeprazole 20 mg p.o. daily, and simvastatin 40 mg p.o. at h.s. FAMILY HISTORY: Noncontributory. 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 She has 8 living adult children, 4 children. She is a nonsmoker, never smoker. Does not consume alcohol. Does not use illicit drugs. REVIEW OF SYSTEMS: GENERAL: Negative for any recent weight loss, fevers, chills, or night sweats. ENT: Positive for diabetic retinopathy, left eye and previous eye surgery, denies any hearing loss. Denies any difficulty eating, chewing, swallowing. Denies any problems with dentition. RESPIRATORY: Positive for shortness of breath, paroxysmal nocturnal dyspnea, and exercise intolerance. CV: Negative for any claudication. Positive for weakness and fatigue, exercise History And Physical [address] [place]. [address] NAME: LUCÍA BHATIA : 41 STATUS : ADM IN [facility]#: [id number] AGE: 71 ADM/REG DATE : 10/10/16 MR#: [id number] REPORT SERV DATE: 10/11/16 DICTATED BY: JUAN LUIS PANG DATE: 10/10/16 REPORT STATUS : Draft TRANSCRIBED BY: NEAL DATE: 10/10/16 intolerance, chest pain, and occasional feet or leg swelling. GI: Positive for gastroesophageal reflux. Negative for any nausea, vomiting, diarrhea, constipation, bleeding at stool, or vomiting blood. : Negative. MUSCULOSKELETAL: Negative. SKIN AND INTEGUMENTARY: Negative. NEURO: Negative for stroke. Negative for TIA or tremors. HEME/ONC: Otherwise negative or as above. PHYSICAL EXAMINATION: GENERAL: She is a pleasant, obese female who does not speak Turkmen. Interpretation through her daughter or pressed or blown glass worker at the hospital is necessary. Height is 157.48 cm. Weight is 74.84 kg. VITAL SIGNS: Blood pressure is 103/54 on nitroglycerin drip, temperature 98.5, pulse 61 and regular, respirations 17, saturation is 99% on 2 L nasal cannula. HEENT: Normocephalic, atraumatic. Pupils equal, round, reactive to light and accommodation, sclerae are clear, conjunctivae pink. No xanthelasma. Oral and buccal mucosa pink and moist. NECK: Supple. No restricted range of motion. No carotid bruits. No jugular venous distention. CHEST: No external abnormality, no instability or tenderness. BREASTS: Not examined. CV: Regular rate and rhythm with soft mitral murmur. She has palpable and symmetric central and peripheral pulses, no clubbing, cyanosis, or edema. ABDOMEN: Soft, obese, nontender with normoactive bowel sounds. No hepatosplenomegaly. /RECTAL: Declined. MUSCULOSKELETAL: No kyphoscoliosis. No asymmetry. NEURO: Alert, oriented, and appropriate. No tremors. She has normal, symmetric upper and lower extremity strength. SKIN, HAIR, AND NAILS: No lesions, masses, or rashes. DATA: Incomplete with echocardiogram results and arteriogram being retrieved from [facility]. IMPRESSION: Possible recent ST-elevation myocardial infarction, with 3-vessel coronary artery disease and calcific mitral valvular disease with insufficiency. We will keep the patient in the ICU on nitroglycerin and heparin drips at present. We will obtain admission lab work, chest x-ray, and EKG and obtain films from [facility]. We will consult hospitalist for diabetes management. We will start beta lali, aspirin, and continue statin coverage. Once films and echocardiogram results have been obtained from [facility], then we will review and make further plans and disposition. BEV/NEAL Juan Luis Arroyo History And Physical [address] [address] NAME: [place]ÍA BHATIA : 41 STATUS : ADM IN [facility]#: [id number] AGE: 71 ADM/REG DATE : 10/10/16 MR#: [id number] REPORT SERV DATE: 10/11/16 DICTATED BY: JUAN LUIS PANG DATE: 10/10/16 REPORT STATUS : Draft TRANSCRIBED BY: NEAL DATE: 10/10/16 Carola Pang / [id number] CC: Yas Guidry M.D.
--- NOTE | ~2016-10-10 | TEE ---
Transesophageal Echocardiogram [facility] [address] [facility] [place]. [address] NAME: LUCÍA BHATIA : 41 STATUS : ADM IN [facility]#: [id number] AGE: 71 ADM/REG DATE : 10/10/16 MR#: [id number] REPORT SERV DATE: 10/12/16 DICTATED BY: GUSTABO NAJERA DATE: 10/12/16 REPORT STATUS : Draft TRANSCRIBED BY: MODL DATE: 10/12/16 URBAN REPORT REQUESTING PHYSICIAN: Dr. Keith Loza, Cardiology. INDICAITON: A 71-year-old female with coronary artery bypass grafting plan and moderate mitral regurgitation seen at the time of ventriculogram. PROCEDURES PERFORMED: Include 2D, 3D, color, and spectral Doppler. 3D interrogation of the mitral valve was performed with personal online manual manipulation of the 3D data set to further assess mitral valve anatomy. Informed consent was obtained, signed, and on the chart prior to proceeding. A time-out was performed. Sedation was per Anesthesia, and esophageal intubation was without difficulty. FINDINGS: VALVES: 1. The mitral valve morphology was normal. There was mild-moderate annular calcifications seen. The mitral leaflets were fully mobile. There was no prolapse or flail segment. There was mild to potentially mild-moderate central mitral regurgitation seen. This was most likely due to Yovani 1 classification with a mildly dilated mitral anulus. The rest of her pulmonary vein was easily identified with normal color Doppler findings and normal spectral Doppler findings with no systolic flow reversal. 2. The aortic valve morphology was trileaflet. The leaflets were mildly thickened with adequate mobility. There was no significant aortic regurgitation. 3. The pulmonic valve was grossly normal with adequate mobility. There was no pulmonic regurgitation. 4. The tricuspid valve morphology was normal with fully mobile leaflets. There was no significant tricuspid regurgitation. CHAMBERS: 1. The left atrium was mildly enlarged. No mass thrombus seen. 2. The ventricle was normal in size with a visually estimated LVEF of 55% to 60%. There were no regional wall motion abnormalities. 3. The right atrium was normal in size. There was no mass thrombus seen. Superior and inferior vena cava appeared normal. 4. The right ventricle was normal in size and systolic function. OTHER: The interatrial septum appeared intact by visual inspection with no evidence of interatrial shunt seen by color Doppler. There was no pericardial effusion. The descending thoracic aorta and aortic arch appeared normal in caliber with minimal atherosclerotic changes and no aneurysm or dissection. There was a trivial amount of pleural fluid noted. 3D: 3D interrogation of the mitral valve was performed with personal online manual manipulation of the 3D data set confirmed normal mitral valve morphology with mild-moderate annular calcification and otherwise normal leaflets with adequate mobility and no prolapse. Transesophageal Echocardiogram [address] [address] NAME: LUCÍA BHATIA : 41 STATUS : ADM IN [facility]#: [id number] AGE: 71 ADM/REG DATE : 10/10/16 MR#: [id number] REPORT SERV DATE: 10/12/16 DICTATED BY: GUSTABO NAJERA. DATE: 10/12/16 REPORT STATUS : Draft TRANSCRIBED BY: NEAL DATE: 10/12/16 COMPLICATIONS: None. CONCLUSION: 1. MILD TO POTENTIALLY MILD-MODERATE CENTRAL MITRAL REGURGITATION, YOVANI 1 CLASSIFICATION WITH A MILDLY DILATED MITRAL ANULUS. 2. MILD LEFT ATRIAL ENLARGEMENT. 3. NORMAL LV SIZE WITH PRESERVED EF, 55% TO 60%. 4. INTACT INTERATRIAL SEPTUM. AEA/CRYSTALL Gustabo Najera M.D. / [id number] CC: MD DERRICK Tellez
--- NOTE | ~2016-10-10 | CN ---
Consultation Report [facility] [address]. [address] NAME: LUCÍA BHATIA : 41 STATUS : ADM IN [facility]#: [id number] AGE: 71 ADM/REG DATE : 10/10/16 MR#: [id number] REPORT SERV DATE: 10/29/16 DICTATED BY: JAY CORDOVA DATE: 10/29/16 REPORT STATUS : Draft TRANSCRIBED BY: MODTobi DATE: 10/29/16 INFECTIOUS DISEASE CONSULT DATE OF CONSULTATION: REASON FOR CONSULT: Leukocytosis. HISTORY OF PRESENT ILLNESS: A 71 years old [place] lady with history of diabetes, hypertension, retinopathy and recurrent UTIs, who was admitted on 10/10/2016 with chest pain and dyspnea. She had EKG changes. The coronary angiogram showed three-vessel disease and moderate mitral regurgitation with ejection fraction. The URBAN showed [id number] mitral regurgitation and a good left ventricular ejection fraction. On 10/13/2016, she had open heart surgery with two coronary bypasses including MANUEL to LAD. The vein was harvested from the right leg. Postop, she had some problems with renal insufficiency due to ATN. On 10/18/2016, she complained of some pain at the urinary catheter site. The urinalysis showed pyuria, so she was started on Levaquin. On 10/19/2016, she was doing well in the morning but when she got up for physical therapy. She developed bradycardia, so code was called and she ended up being intubated and transferred to ICU. Started running a fever around the same time and she had decreased urine output. She was put on Zosyn, but no cultures were done until 10/20/2016. At that time, one blood culture was negative. A sputum culture grew normal jacquelin. Urine culture grew an ESBL E. coli. Of note, the urine culture done on the 17 of October also grew ESBL E. coli. Antibiotics were later changed to meropenem on 10/22/2016. She was extubated on the also and she had some wheezing and stridor requiring some Decadron. Since the surgery, she has had persistent leukocytosis being in the 20 range since 10/19/2016, but little band forms mostly, much were neutrophils. Because she had this ESBL E. coli in the urine and she has leukocytosis, an ID consult was requested. At this time, the patient reports no pain. She has some cough without sputum production. She does not complain of shortness of breath or abdominal pain. She has not had a bowel movement in several days. She has a Prakash catheter. No nausea. She had some tongue discomfort. No acute joint pains. She has been afebrile, just one time she had a temp of 100.8. She is being diuresed. Repeat urinalysis on 10/26/2016 was unremarkable. Chest x-ray shows persistent bibasilar opacities, may be due to atelectasis or effusions or consolidation. Lab work: WBC 20, hemoglobin 8, platelets 216. Creatinine 0.9. Consultation Report [address] [place]. [address] NAME: LUCÍA BHATIA : 41 STATUS : ADM IN [facility]#: [id number] AGE: 71 ADM/REG DATE : 10/10/16 MR#: [id number] REPORT SERV DATE: 10/29/16 DICTATED BY: JAY CORDOVA DATE: 10/29/16 REPORT STATUS : Draft TRANSCRIBED BY: NEAL DATE: 10/29/16 PAST MEDICAL HISTORY: As I mentioned above plus retinopathy and prior umbilical hernia surgery. 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 She reports no history of tuberculosis or pneumonia, so only history of urinary tract infections. FAMILY HISTORY: Unknown. ALLERGIES: NONE. MEDICATIONS ON ADMISSION: Losartan, metformin, omeprazole, and simvastatin. PHYSICAL EXAMINATION: GENERAL: On exam, she is awake. HEENT: Limited oral exam shows no ulcers. SKIN: Chest surgical site is covered. She has a right arm PICC line which was put recently. She has marked legs edema. She has some mild arms edema. She has a tiny wound in the intergluteal cleft area. LUNGS: Decreased sounds throughout. HEART: Distant sounds. Regular rhythm. ABDOMEN: Obese, compressible, nontender. INVESTIGATIONS: KUB x-ray showed diffuse stool retention. ASSESSMENT AND PLAN: 1. Positive urine culture for ESBL E. coli, status post treatment with meropenem since 10/22/2016. She has a history of recurrent UTIs, but she has never told the reason for that. She had no prior urinary symptoms prior to this admission. 2. Leukocytosis without bandemia. 3. Myocardial infarction, status post CABG on 10/13/2016 including MANUEL to LAD. 4. She was coded on 10/19/2016. I do not have the code report. She appears to be constipated, so treatment was prescribed. The chest x-ray shows persistent bibasilar consolidations or atelectasis. I would like to rule out effusions. Clinically pneumonia seems less likely. I think we could stop the meropenem now after about seven days of treatment. Check a renal ultrasound to rule out presence of kidney stones or some partial obstruction. Cannot evaluate the surgical site since it is covered. Discussed with the patient's nurse and the patient's daughter. PC/MODL Consultation Report [place] [address] [place] [address] NAME: LUCÍA BHATIA : 41 STATUS : ADM IN [facility]#: [id number] AGE: 71 ADM/REG DATE : 10/10/16 MR#: [id number] REPORT SERV DATE: 10/29/16 DICTATED BY: JAY CORDOVA DATE: 10/29/16 REPORT STATUS : Draft TRANSCRIBED BY: NEAL DATE: 10/29/16 Jay Cordova M.D. / [id number] CC: MD Chao Tellez Julia
[2016-10-10] MEDS ORDERED: COZ50 PO (16:47)
[2016-10-10] MEDS ORDERED: GLUCPH8 PO (16:48)
[2016-10-10] MEDS ORDERED: ZOCOR40 PO (16:48)
[2016-10-10] MEDS ORDERED: PRILO PO (16:49)
[2016-10-10 19:04] LABS: BASOPHILS 0.3 %; BASOPHILS ABSOLUTE 0.03 10/3/uL (0.0-0.16); EOSINOPHILS 1.5 %; EOSINOPHILS ABSOLUTE 0.16 10/3/uL (0.0-0.53); HEMATOCRIT 29.9 % (36.0-48.0); HEMOGLOBIN 9.6 g/dL (12.0-16.0); IMMATURE GRANULOCYTES 0.3 %; IMMATURE GRANULOCYTES ABSOLUTE 0.03 10/3/uL (0.0-0.11); LYMPHOCYTES 24.9 %; MEAN CORPUS HGB CONC 32.1 g/dL (32.0-36.0); MEAN CORPUSCULAR HEMOGLOB 27.5 pg (26.0-34.0); MEAN CORPUSCULAR VOLUME 85.7 fL (80-100); MEAN PLATELET VOLUME 10.3 fL (9.2-13.0); MONOCYTES 4.9 %; MONOCYTES ABSOLUTE 0.51 10/3/uL (0.21-1.20); NEUTROPHILS 68.1 %; NEUTROPHILS ABSOLUTE 7.13 10/3/uL (2.02-8.40); PLATELET COUNT 258 10/3/uL (150-400); RBC DISTRIBUTION WIDTH 14.5 % (12.0-16.0); RED CELL COUNT 3.49 10/6/uL (4.0-5.6); WHITE BLOOD CELLS 10.5 10/3/uL (4.5-10.5)
[2016-10-10 19:05] LABS: MANUAL DIFF NO %
[2016-10-10 19:11] LABS: INTERNATIONAL NORMAL RATI 1.2 UNITS (-); PROTIME (NOT ORD) 14.9 SEC (12.0-14.5)
[2016-10-10 19:12] LABS: PARTIAL THROMBO TIME 85.6 SEC (22.5-37.2)
[2016-10-10 19:18] LABS: BUN (BLOOD UREA NITROGEN) 19 MG/DL (6-23); CALCIUM, SERUM 8.1 MG/DL (8.5-10.4); CHLORIDE, SERUM 104 MMOL/L (96-112); CO2 (CARBON DIOXIDE) 29 MMOL/L (24-34); CREATININE 0.85 MG/DL (0.55-1.02); GFR AFRICAN AMERICAN 79 ML/MIN (>=60); GFR NON AFRICAN AMERICAN 68 ML/MIN (>=60); GLUCOSE, SERUM 193 MG/DL (60-99); POTASSIUM, SERUM 4.4 MMOL/L (3.5-5.3); SODIUM, SERUM 140 MMOL/L (135-148)
[2016-10-11 04:09] LABS: HEMATOCRIT 30.2 % (36.0-48.0); HEMOGLOBIN 9.9 g/dL (12.0-16.0); MANUAL DIFF YES %; MEAN CORPUS HGB CONC 32.8 g/dL (32.0-36.0); MEAN CORPUSCULAR HEMOGLOB 28.5 pg (26.0-34.0); MEAN PLATELET VOLUME 10.3 fL (9.2-13.0); PLATELET COUNT 252 10/3/uL (150-400); RBC DISTRIBUTION WIDTH 14.5 % (12.0-16.0); RED CELL COUNT 3.47 10/6/uL (4.0-5.6); WHITE BLOOD CELLS 9.9 10/3/uL (4.5-10.5)
[2016-10-11 04:13] LABS: INTERNATIONAL NORMAL RATI 1.1 UNITS (-); PARTIAL THROMBO TIME 71.2 SEC (22.5-37.2); PROTIME (NOT ORD) 14.5 SEC (12.0-14.5)
[2016-10-11 04:20] LABS: A/G RATIO 0.9 (0.7-1.9); ALKALINE PHOSPHATASE 79 U/L (45-117); BUN (BLOOD UREA NITROGEN) 19 MG/DL (6-23); CALCIUM, SERUM 8.1 MG/DL (8.5-10.4); CHLORIDE, SERUM 106 MMOL/L (96-112); CO2 (CARBON DIOXIDE) 28 MMOL/L (24-34); CREATININE 0.81 MG/DL (0.55-1.02); GFR AFRICAN AMERICAN 84 ML/MIN (>=60); GFR NON AFRICAN AMERICAN 72 ML/MIN (>=60); GLOBULIN 3.4 G/DL (2.5-4.1); SGOT(AST) 30 U/L (5-40); SGPT(ALT) 20 U/L (5-65); SODIUM, SERUM 142 MMOL/L (135-148); TOTAL BILIRUBIN 0.3 MG/DL (0-1.2); TOTAL PROTEIN 6.4 G/DL (6.0-8.5)
[2016-10-11 04:24] LABS: GLUCOSE, SERUM 141 MG/DL (60-99)
[2016-10-11 04:34] LABS: EOSINOPHILS 2 %; LYMPHOCYTES 22 %; LYMPHOCYTES ABSOLUTE (CALC) 2.18 10/3/uL (0.67-4.30); MONOCYTES 2 %; NEUTROPHILS ABSOLUTE (CALC) 7.33 10/3/uL (2.02-8.40); PLATELET ESTIMATE ADQ (ADEQUATE); RBC MORPHOLOGY NORM (NORMAL); SEGMENTED NEUTROPHIL (0) 74 %; TOTAL NUCLEATED CELLS 100
[2016-10-12 03:48] LABS: BASOPHILS 0.2 %; BASOPHILS ABSOLUTE 0.02 10/3/uL (0.0-0.16); EOSINOPHILS 3.2 %; EOSINOPHILS ABSOLUTE 0.34 10/3/uL (0.0-0.53); HEMATOCRIT 28.6 % (36.0-48.0); HEMOGLOBIN 9.6 g/dL (12.0-16.0); IMMATURE GRANULOCYTES 0.4 %; IMMATURE GRANULOCYTES ABSOLUTE 0.04 10/3/uL (0.0-0.11); LYMPHOCYTES ABSOLUTE 2.91 10/3/uL (0.67-4.30); MEAN CORPUS HGB CONC 33.6 g/dL (32.0-36.0); MEAN CORPUSCULAR HEMOGLOB 28.9 pg (26.0-34.0); MEAN CORPUSCULAR VOLUME 86.1 fL (80-100); MEAN PLATELET VOLUME 10.2 fL (9.2-13.0); MONOCYTES 6.6 %; MONOCYTES ABSOLUTE 0.71 10/3/uL (0.21-1.20); NEUTROPHILS 62.6 %; NEUTROPHILS ABSOLUTE 6.77 10/3/uL (2.02-8.40); PLATELET COUNT 236 10/3/uL (150-400); RBC DISTRIBUTION WIDTH 14.1 % (12.0-16.0); RED CELL COUNT 3.32 10/6/uL (4.0-5.6); WHITE BLOOD CELLS 10.8 10/3/uL (4.5-10.5)
[2016-10-12 03:50] LABS: MANUAL DIFF NO %
[2016-10-12 04:10] LABS: BUN (BLOOD UREA NITROGEN) 19 MG/DL (6-23); CALCIUM, SERUM 8.3 MG/DL (8.5-10.4); CHLORIDE, SERUM 103 MMOL/L (96-112); CO2 (CARBON DIOXIDE) 28 MMOL/L (24-34); CREATININE 0.87 MG/DL (0.55-1.02); GFR AFRICAN AMERICAN 77 ML/MIN (>=60); GFR NON AFRICAN AMERICAN 66 ML/MIN (>=60); POTASSIUM, SERUM 4.6 MMOL/L (3.5-5.3); SODIUM, SERUM 140 MMOL/L (135-148)
[2016-10-12 04:12] LABS: GLUCOSE, SERUM 281 MG/DL (60-99)
[2016-10-13 04:05] LABS: BASOPHILS 0.3 %; BASOPHILS ABSOLUTE 0.03 10/3/uL (0.0-0.16); EOSINOPHILS 3.5 %; HEMATOCRIT 27.4 % (36.0-48.0); IMMATURE GRANULOCYTES 0.4 %; IMMATURE GRANULOCYTES ABSOLUTE 0.05 10/3/uL (0.0-0.11); LYMPHOCYTES 22.4 %; LYMPHOCYTES ABSOLUTE 2.58 10/3/uL (0.67-4.30); MEAN CORPUS HGB CONC 32.8 g/dL (32.0-36.0); MEAN CORPUSCULAR HEMOGLOB 27.8 pg (26.0-34.0); MEAN CORPUSCULAR VOLUME 84.6 fL (80-100); MEAN PLATELET VOLUME 10.7 fL (9.2-13.0); MONOCYTES 5.6 %; MONOCYTES ABSOLUTE 0.64 10/3/uL (0.21-1.20); NEUTROPHILS 67.8 %; NEUTROPHILS ABSOLUTE 7.81 10/3/uL (2.02-8.40); PLATELET COUNT 248 10/3/uL (150-400); RBC DISTRIBUTION WIDTH 14.4 % (12.0-16.0); RED CELL COUNT 3.24 10/6/uL (4.0-5.6); WHITE BLOOD CELLS 11.5 10/3/uL (4.5-10.5)
[2016-10-13 04:10] LABS: MANUAL DIFF NO %
[2016-10-13 04:24] LABS: % IRON SAT 15 % (20-50); A/G RATIO 0.9 (0.7-1.9); ALBUMIN 3.1 G/DL (3.5-5.0); ALKALINE PHOSPHATASE 79 U/L (45-117); BUN (BLOOD UREA NITROGEN) 19 MG/DL (6-23); CALCIUM, SERUM 8.3 MG/DL (8.5-10.4); CHLORIDE, SERUM 103 MMOL/L (96-112); CO2 (CARBON DIOXIDE) 27 MMOL/L (24-34); CREATININE 0.92 MG/DL (0.55-1.02); GFR AFRICAN AMERICAN 72 ML/MIN (>=60); GFR NON AFRICAN AMERICAN 62 ML/MIN (>=60); GLOBULIN 3.4 G/DL (2.5-4.1); GLUCOSE, SERUM 287 MG/DL (60-99); IRON BINDING CAPACITY 285 MCG/DL (225-410); IRON, SERUM 44 MCG/DL (35-150); POTASSIUM, SERUM 4.3 MMOL/L (3.5-5.3); SGOT(AST) 13 U/L (5-40); SGPT(ALT) 21 U/L (5-65); SODIUM, SERUM 137 MMOL/L (135-148); TOTAL BILIRUBIN 0.4 MG/DL (0-1.2); TOTAL PROTEIN 6.5 G/DL (6.0-8.5)
[2016-10-13 04:31] LABS: INTERNATIONAL NORMAL RATI 1.1 UNITS (-); PROTIME (NOT ORD) 14.5 SEC (12.0-14.5)
[2016-10-13 11:59] LABS: BE (BASE EXCESS) -1.2 MEQ/L (0 +/- 2.5); CARBOXYHEMOGLOBIN 0.3 % (0-3); HCO3 (ACTUAL BICARBONATE) 23.7 MEQ/L (23-27); HEMOBLOGIN CONTENT 9.4 G/DL (12-16); INSTRUMENT SERIAL # 11843; METHEMOGLOBIN 0.7 % (0-3); MODE SIMV; OPERATOR ID 35188; PCO2 (CO2 TENSION) 40 MMHG (35-45); PO2 (O2 TENSION) 378 MMHG (79-93); SAMPLE Arterial; TIDAL VOLUME 500 ML; pH 7.39 (7.37-7.43)
[2016-10-13 12:08] LABS: HEMATOCRIT 25.8 % (36.0-48.0); HEMOGLOBIN 8.4 g/dL (12.0-16.0)
[2016-10-13 12:11] LABS: PLATELET COUNT 129 10/3/uL (150-400)
[2016-10-13 12:16] LABS: INTERNATIONAL NORMAL RATI 1.5 UNITS (-); PARTIAL THROMBO TIME 35.5 SEC (22.5-37.2)
[2016-10-13 12:17] LABS: PROTIME (NOT ORD) 17.8 SEC (12.0-14.5)
[2016-10-13 12:20] LABS: BUN (BLOOD UREA NITROGEN) 18 MG/DL (6-23); CALCIUM, SERUM 8.1 MG/DL (8.5-10.4); CHLORIDE, SERUM 107 MMOL/L (96-112); CO2 (CARBON DIOXIDE) 27 MMOL/L (24-34); CREATININE 0.92 MG/DL (0.55-1.02); GFR AFRICAN AMERICAN 72 ML/MIN (>=60); GFR NON AFRICAN AMERICAN 62 ML/MIN (>=60); POTASSIUM, SERUM 3.9 MMOL/L (3.5-5.3)
[2016-10-13 12:21] LABS: GLUCOSE, SERUM 130 MG/DL (60-99); SODIUM, SERUM 144 MMOL/L (135-148)
[2016-10-13 12:32] LABS: FIBRINOGEN 252 MG/DL (230-462)
[2016-10-13 16:53] LABS: BE (BASE EXCESS) -3.6 MEQ/L (0 +/- 2.5); CARBOXYHEMOGLOBIN 0.3 % (0-3); DEVICE NC; HCO3 (ACTUAL BICARBONATE) 22.1 MEQ/L (23-27); HEMOBLOGIN CONTENT 9.5 G/DL (12-16); INSTRUMENT SERIAL # 11843; METHEMOGLOBIN 0.6 % (0-3); O2 CONTENT 12.7 VOL% (18-24); OPERATOR ID 35188; PCO2 (CO2 TENSION) 42 MMHG (35-45); PO2 (O2 TENSION) 92 MMHG (79-93); SAMPLE Arterial; pH 7.33 (7.37-7.43)
[2016-10-13 18:15] LABS: HEMATOCRIT 26.3 % (36.0-48.0); HEMOGLOBIN 8.5 g/dL (12.0-16.0)
[2016-10-13 18:25] LABS: POTASSIUM, SERUM 4.1 MMOL/L (3.5-5.3)
[2016-10-14 03:35] LABS: BASOPHILS 0.1 %; BASOPHILS ABSOLUTE 0.01 10/3/uL (0.0-0.16); EOSINOPHILS 0 %; HEMATOCRIT 24.3 % (36.0-48.0); HEMOGLOBIN 7.9 g/dL (12.0-16.0); IMMATURE GRANULOCYTES 0.4 %; IMMATURE GRANULOCYTES ABSOLUTE 0.06 10/3/uL (0.0-0.11); LYMPHOCYTES 10.1 %; LYMPHOCYTES ABSOLUTE 1.43 10/3/uL (0.67-4.30); MANUAL DIFF NO %; MEAN CORPUS HGB CONC 32.5 g/dL (32.0-36.0); MEAN CORPUSCULAR HEMOGLOB 28.3 pg (26.0-34.0); MEAN CORPUSCULAR VOLUME 87.1 fL (80-100); MEAN PLATELET VOLUME 9.9 fL (9.2-13.0); MONOCYTES 9.5 %; MONOCYTES ABSOLUTE 1.34 10/3/uL (0.21-1.20); NEUTROPHILS 79.9 %; NEUTROPHILS ABSOLUTE 11.27 10/3/uL (2.02-8.40); PLATELET COUNT 152 10/3/uL (150-400); RBC DISTRIBUTION WIDTH 14.7 % (12.0-16.0); RED CELL COUNT 2.79 10/6/uL (4.0-5.6); WHITE BLOOD CELLS 14.1 10/3/uL (4.5-10.5)
[2016-10-14 03:41] LABS: INTERNATIONAL NORMAL RATI 1.3 UNITS (-); PROTIME (NOT ORD) 16.3 SEC (12.0-14.5)
[2016-10-14 03:49] LABS: BUN (BLOOD UREA NITROGEN) 20 MG/DL (6-23); CALCIUM, SERUM 8.2 MG/DL (8.5-10.4); CHLORIDE, SERUM 109 MMOL/L (96-112); CO2 (CARBON DIOXIDE) 26 MMOL/L (24-34); GFR AFRICAN AMERICAN 65 ML/MIN (>=60); GFR NON AFRICAN AMERICAN 56 ML/MIN (>=60); GLUCOSE, SERUM 102 MG/DL (60-99); SODIUM, SERUM 143 MMOL/L (135-148)
[2016-10-14 04:42] LABS: HEMATOCRIT 24.4 % (36.0-48.0); HEMOGLOBIN 7.9 g/dL (12.0-16.0)
[2016-10-14 14:42] LABS: HEMATOCRIT 23.4 % (36.0-48.0); HEMOGLOBIN 7.4 g/dL (12.0-16.0)
[2016-10-14 14:50] LABS: POTASSIUM, SERUM 4.8 MMOL/L (3.5-5.3)
[2016-10-14 22:44] LABS: CALCIUM, SERUM 7.5 MG/DL (8.5-10.4); CHLORIDE, SERUM 102 MMOL/L (96-112); CO2 (CARBON DIOXIDE) 25 MMOL/L (24-34); POTASSIUM, SERUM 5.1 MMOL/L (3.5-5.3)
[2016-10-14 22:45] LABS: BUN (BLOOD UREA NITROGEN) 33 MG/DL (6-23); CREATININE 1.91 MG/DL (0.55-1.02); GFR AFRICAN AMERICAN 30 ML/MIN (>=60); GFR NON AFRICAN AMERICAN 26 ML/MIN (>=60); GLUCOSE, SERUM 191 MG/DL (60-99); SODIUM, SERUM 134 MMOL/L (135-148)
[2016-10-15 04:07] LABS: BASOPHILS 0.2 %; BASOPHILS ABSOLUTE 0.03 10/3/uL (0.0-0.16); EOSINOPHILS 0.1 %; EOSINOPHILS ABSOLUTE 0.01 10/3/uL (0.0-0.53); HEMATOCRIT 25.3 % (36.0-48.0); HEMOGLOBIN 8.5 g/dL (12.0-16.0); IMMATURE GRANULOCYTES 1.2 %; LYMPHOCYTES 12.8 %; LYMPHOCYTES ABSOLUTE 2.12 10/3/uL (0.67-4.30); MEAN CORPUS HGB CONC 33.6 g/dL (32.0-36.0); MEAN CORPUSCULAR VOLUME 86.3 fL (80-100); MEAN PLATELET VOLUME 10.3 fL (9.2-13.0); MONOCYTES 10.9 %; MONOCYTES ABSOLUTE 1.81 10/3/uL (0.21-1.20); NEUTROPHILS 74.8 %; NEUTROPHILS ABSOLUTE 12.41 10/3/uL (2.02-8.40); NUCLEATED RED BLOOD CELLS 0.7 /100WBC (0-0); PLATELET COUNT 126 10/3/uL (150-400); RBC DISTRIBUTION WIDTH 14.9 % (12.0-16.0); RED CELL COUNT 2.93 10/6/uL (4.0-5.6); WHITE BLOOD CELLS 16.6 10/3/uL (4.5-10.5)
[2016-10-15 04:08] LABS: MANUAL DIFF NO %
[2016-10-15 04:21] LABS: CHLORIDE, SERUM 99 MMOL/L (96-112); CO2 (CARBON DIOXIDE) 26 MMOL/L (24-34); CREATININE 1.78 MG/DL (0.55-1.02); GFR AFRICAN AMERICAN 32 ML/MIN (>=60); GFR NON AFRICAN AMERICAN 28 ML/MIN (>=60); POTASSIUM, SERUM 4.9 MMOL/L (3.5-5.3); SODIUM, SERUM 134 MMOL/L (135-148)
[2016-10-15 04:22] LABS: BUN (BLOOD UREA NITROGEN) 37 MG/DL (6-23); GLUCOSE, SERUM 144 MG/DL (60-99)
[2016-10-16 08:28] LABS: CALCIUM, SERUM 7.6 MG/DL (8.5-10.4); CHLORIDE, SERUM 95 MMOL/L (96-112); CREATININE 1.56 MG/DL (0.55-1.02); GFR AFRICAN AMERICAN 38 ML/MIN (>=60); GFR NON AFRICAN AMERICAN 33 ML/MIN (>=60)
[2016-10-16 08:32] LABS: BUN (BLOOD UREA NITROGEN) 54 MG/DL (6-23); CO2 (CARBON DIOXIDE) 20 MMOL/L (24-34)
[2016-10-16 08:48] LABS: SODIUM, SERUM 128 MMOL/L (135-148)
[2016-10-16 08:49] LABS: GLUCOSE, SERUM 367 MG/DL (60-99)
[2016-10-16 09:38] LABS: HEMATOCRIT 27.5 % (36.0-48.0); MEAN CORPUS HGB CONC 32.7 g/dL (32.0-36.0); MEAN CORPUSCULAR VOLUME 85.7 fL (80-100); MEAN PLATELET VOLUME 11.6 fL (9.2-13.0); NUCLEATED RED BLOOD CELLS 2.3 /100WBC (0-0); PLATELET COUNT 159 10/3/uL (150-400); RBC DISTRIBUTION WIDTH 14.8 % (12.0-16.0); RED CELL COUNT 3.21 10/6/uL (4.0-5.6); WHITE BLOOD CELLS 14.2 10/3/uL (4.5-10.5)
[2016-10-16 09:39] LABS: MANUAL DIFF YES %
[2016-10-16 10:24] LABS: BAND NEUTROPHILS 35 %; IMMATURE GRANS ABSOLUTE (CALC) 0.43 10/3/uL (0.0-0.11); LYMPHOCYTES 9 %; LYMPHOCYTES ABSOLUTE (CALC) 1.28 10/3/uL (0.67-4.30); METAMYELOCYTES 2 %; MONOCYTES 3 %; MONOCYTES ABSOLUTE (CALC) 0.43 10/3/uL (0.21-1.20); MYELOCYTES 1 %; NEUTROPHILS ABSOLUTE (CALC) 12.07 10/3/uL (2.02-8.40); PLATELET ESTIMATE ADQ (ADEQUATE); SEGMENTED NEUTROPHIL (0) 50 %; TOTAL NUCLEATED CELLS 100
[2016-10-16 11:52] LABS: BUN (BLOOD UREA NITROGEN) 62 MG/DL (6-23); CALCIUM, SERUM 7.8 MG/DL (8.5-10.4); CHLORIDE, SERUM 96 MMOL/L (96-112); CO2 (CARBON DIOXIDE) 19 MMOL/L (24-34); CREATININE 1.72 MG/DL (0.55-1.02); GFR AFRICAN AMERICAN 34 ML/MIN (>=60); GFR NON AFRICAN AMERICAN 29 ML/MIN (>=60); GLUCOSE, SERUM 380 MG/DL (60-99); POTASSIUM, SERUM 6.5 MMOL/L (3.5-5.3); SODIUM, SERUM 131 MMOL/L (135-148)
[2016-10-16 12:30] LABS: BUN (BLOOD UREA NITROGEN) 59 MG/DL (6-23); CALCIUM, SERUM 7.6 MG/DL (8.5-10.4); CHLORIDE, SERUM 94 MMOL/L (96-112); CREATININE 1.74 MG/DL (0.55-1.02); GFR AFRICAN AMERICAN 33 ML/MIN (>=60); GFR NON AFRICAN AMERICAN 29 ML/MIN (>=60); POTASSIUM, SERUM 5.5 MMOL/L (3.5-5.3); SODIUM, SERUM 129 MMOL/L (135-148)
[2016-10-16 12:32] LABS: CO2 (CARBON DIOXIDE) 25 MMOL/L (24-34); GLUCOSE, SERUM 365 MG/DL (60-99)
[2016-10-16 19:44] LABS: BUN (BLOOD UREA NITROGEN) 57 MG/DL (6-23); CALCIUM, SERUM 7.8 MG/DL (8.5-10.4); CHLORIDE, SERUM 95 MMOL/L (96-112); CO2 (CARBON DIOXIDE) 27 MMOL/L (24-34); CREATININE 1.52 MG/DL (0.55-1.02); GFR AFRICAN AMERICAN 39 ML/MIN (>=60); GFR NON AFRICAN AMERICAN 34 ML/MIN (>=60); POTASSIUM, SERUM 4.5 MMOL/L (3.5-5.3); SODIUM, SERUM 130 MMOL/L (135-148)
[2016-10-16 19:46] LABS: GLUCOSE, SERUM 191 MG/DL (60-99)
[2016-10-17 06:12] LABS: HEMATOCRIT 28.6 % (36.0-48.0); MEAN CORPUS HGB CONC 31.5 g/dL (32.0-36.0); MEAN CORPUSCULAR HEMOGLOB 27.5 pg (26.0-34.0); MEAN CORPUSCULAR VOLUME 87.5 fL (80-100); MEAN PLATELET VOLUME 10.8 fL (9.2-13.0); NUCLEATED RED BLOOD CELLS 2.9 /100WBC (0-0); PLATELET COUNT 146 10/3/uL (150-400); RBC DISTRIBUTION WIDTH 15.1 % (12.0-16.0); RED CELL COUNT 3.27 10/6/uL (4.0-5.6)
[2016-10-17 06:14] LABS: BUN (BLOOD UREA NITROGEN) 58 MG/DL (6-23); CALCIUM, SERUM 7.4 MG/DL (8.5-10.4); CHLORIDE, SERUM 100 MMOL/L (96-112); CREATININE 1.37 MG/DL (0.55-1.02); GFR AFRICAN AMERICAN 44 ML/MIN (>=60); GFR NON AFRICAN AMERICAN 38 ML/MIN (>=60); SODIUM, SERUM 131 MMOL/L (135-148)
[2016-10-17 06:16] LABS: CO2 (CARBON DIOXIDE) 20 MMOL/L (24-34); GLUCOSE, SERUM 107 MG/DL (60-99); POTASSIUM, SERUM 5.2 MMOL/L (3.5-5.3)
[2016-10-17 06:19] LABS: MANUAL DIFF YES %
[2016-10-17 07:20] LABS: BAND NEUTROPHILS 14 %; EOSINOPHILS 1 %; EOSINOPHILS ABSOLUTE (CALC) 0.16 10/3/uL (0.0-0.53); IMMATURE GRANS ABSOLUTE (CALC) 0.32 10/3/uL (0.0-0.11); LYMPHOCYTES 21 %; LYMPHOCYTES ABSOLUTE (CALC) 3.36 10/3/uL (0.67-4.30); METAMYELOCYTES 1 %; MONOCYTES 4 %; MONOCYTES ABSOLUTE (CALC) 0.64 10/3/uL (0.21-1.20); MYELOCYTES 1 %; NEUTROPHILS ABSOLUTE (CALC) 11.52 10/3/uL (2.02-8.40); PLATELET ESTIMATE SLT DEC (ADEQUATE); POLYCHROMASIA 1+ (2-5/OIF) (0-1/OIF); SEGMENTED NEUTROPHIL (0) 58 %; TOTAL NUCLEATED CELLS 100
[2016-10-17 07:21] LABS: TOXIC GRANULATION 1+
[2016-10-17 17:56] LABS: ASCORBIC ACID (UR NOT ORDER) 40 (NEG); BILIRUBIN, URINE NEGATIVE (NEG); KETONE, URINE TRACE MG/DL (NEG); LEUKOCYTE ESTERASE(NOT OR LARGE (NEG); WBC (NOT ORDERED) (RFLEX) 151 (0-5)
[2016-10-18 03:10] LABS: INTERNATIONAL NORMAL RATI 1.5 UNITS (-); PROTIME (NOT ORD) 18.2 SEC (12.0-14.5)
[2016-10-18 03:11] LABS: HEMATOCRIT 26.6 % (36.0-48.0); MEAN CORPUSCULAR HEMOGLOB 28.9 pg (26.0-34.0); MEAN CORPUSCULAR VOLUME 85.5 fL (80-100); MEAN PLATELET VOLUME 10.5 fL (9.2-13.0); NUCLEATED RED BLOOD CELLS 4.6 /100WBC (0-0); PARTIAL THROMBO TIME 57.3 SEC (22.5-37.2); PLATELET COUNT 153 10/3/uL (150-400); RBC DISTRIBUTION WIDTH 14.8 % (12.0-16.0); RED CELL COUNT 3.11 10/6/uL (4.0-5.6); WHITE BLOOD CELLS 19.9 10/3/uL (4.5-10.5)
[2016-10-18 03:13] LABS: MANUAL DIFF YES %; MEAN CORPUS HGB CONC 33.8 g/dL (32.0-36.0)
[2016-10-18 03:16] LABS: CALCIUM, SERUM 7.2 MG/DL (8.5-10.4); CHLORIDE, SERUM 95 MMOL/L (96-112); CREATININE 1.12 MG/DL (0.55-1.02); GFR AFRICAN AMERICAN 56 ML/MIN (>=60); GFR NON AFRICAN AMERICAN 49 ML/MIN (>=60); POTASSIUM, SERUM 4.7 MMOL/L (3.5-5.3); SODIUM, SERUM 130 MMOL/L (135-148)
[2016-10-18 03:18] LABS: BUN (BLOOD UREA NITROGEN) 54 MG/DL (6-23); CO2 (CARBON DIOXIDE) 25 MMOL/L (24-34); GLUCOSE, SERUM 193 MG/DL (60-99)
[2016-10-18 03:23] LABS: BAND NEUTROPHILS 4 %; EOSINOPHILS 1 %; LYMPHOCYTES 17 %; LYMPHOCYTES ABSOLUTE (CALC) 3.38 10/3/uL (0.67-4.30); MONOCYTES 8 %; MONOCYTES ABSOLUTE (CALC) 1.59 10/3/uL (0.21-1.20); NEUTROPHILS ABSOLUTE (CALC) 14.73 10/3/uL (2.02-8.40); PLATELET ESTIMATE ADQ (ADEQUATE); RBC MORPHOLOGY NORM (NORMAL); SEGMENTED NEUTROPHIL (0) 70 %; TOTAL NUCLEATED CELLS 100
[2016-10-18 10:39] LABS: INTERNATIONAL NORMAL RATI 1.8 UNITS (-); PROTIME (NOT ORD) 20.4 SEC (12.0-14.5)
[2016-10-18 10:40] LABS: PARTIAL THROMBO TIME 64.1 SEC (22.5-37.2)
[2016-10-19 06:15] LABS: HEMATOCRIT 26.9 % (36.0-48.0); HEMOGLOBIN 9.1 g/dL (12.0-16.0); MANUAL DIFF YES %; MEAN CORPUS HGB CONC 33.8 g/dL (32.0-36.0); MEAN CORPUSCULAR HEMOGLOB 28.6 pg (26.0-34.0); MEAN CORPUSCULAR VOLUME 84.6 fL (80-100); MEAN PLATELET VOLUME 10.1 fL (9.2-13.0); NUCLEATED RED BLOOD CELLS 6.7 /100WBC (0-0); PLATELET COUNT 124 10/3/uL (150-400); RBC DISTRIBUTION WIDTH 14.7 % (12.0-16.0); RED CELL COUNT 3.18 10/6/uL (4.0-5.6); WHITE BLOOD CELLS 21.9 10/3/uL (4.5-10.5)
[2016-10-19 06:20] LABS: CALCIUM, SERUM 7.3 MG/DL (8.5-10.4); CHLORIDE, SERUM 91 MMOL/L (96-112); CO2 (CARBON DIOXIDE) 28 MMOL/L (24-34); CREATININE 0.87 MG/DL (0.55-1.02); GFR AFRICAN AMERICAN 77 ML/MIN (>=60); GFR NON AFRICAN AMERICAN 66 ML/MIN (>=60); POTASSIUM, SERUM 4.4 MMOL/L (3.5-5.3); SODIUM, SERUM 131 MMOL/L (135-148)
[2016-10-19 06:21] LABS: BUN (BLOOD UREA NITROGEN) 37 MG/DL (6-23); GLUCOSE, SERUM 146 MG/DL (60-99)
[2016-10-19 06:28] LABS: INTERNATIONAL NORMAL RATI 3.1 UNITS (-)
[2016-10-19 06:31] LABS: PROTIME (NOT ORD) 31.8 SEC (12.0-14.5)
[2016-10-19 06:36] LABS: ANISOCYTOSIS 1+ (5-10/OIF) (0-5/OIF); BAND NEUTROPHILS 9 %; EOSINOPHILS 2 %; EOSINOPHILS ABSOLUTE (CALC) 0.44 10/3/uL (0.0-0.53); LYMPHOCYTES 8 %; LYMPHOCYTES ABSOLUTE (CALC) 1.75 10/3/uL (0.67-4.30); MACROCYTES 1+ (5-10/OIF) (0-5/OIF); MONOCYTES 3 %; MONOCYTES ABSOLUTE (CALC) 0.66 10/3/uL (0.21-1.20); NEUTROPHILS ABSOLUTE (CALC) 19.05 10/3/uL (2.02-8.40); PLATELET ESTIMATE DEC (ADEQUATE); SEGMENTED NEUTROPHIL (0) 78 %; TOTAL NUCLEATED CELLS 100
[2016-10-19 14:40] LABS: BE (BASE EXCESS) -11.1 MEQ/L (0 +/- 2.5); CARBOXYHEMOGLOBIN 0.1 % (0-3); HCO3 (ACTUAL BICARBONATE) 16.3 MEQ/L (23-27); HEMOBLOGIN CONTENT 9.2 G/DL (12-16); INSTRUMENT SERIAL # 11843; METHEMOGLOBIN 0.3 % (0-3); MODE CMV; O2 CONTENT 13.4 VOL% (18-24); OPERATOR ID 19104; PCO2 (CO2 TENSION) 43 MMHG (35-45); PO2 (O2 TENSION) 245 MMHG (79-93); SAMPLE Arterial; TIDAL VOLUME 500 ML
[2016-10-19 15:51] LABS: BE (BASE EXCESS) -5.9 MEQ/L (0 +/- 2.5); CARBOXYHEMOGLOBIN 0.3 % (0-3); HCO3 (ACTUAL BICARBONATE) 18.5 MEQ/L (23-27); HEMOBLOGIN CONTENT 8.6 G/DL (12-16); INSTRUMENT SERIAL # 11843; METHEMOGLOBIN 0.4 % (0-3); MODE CMV; O2 CONTENT 12.9 VOL% (18-24); OPERATOR ID 19104; PCO2 (CO2 TENSION) 32 MMHG (35-45); PO2 (O2 TENSION) 364 MMHG (79-93); SAMPLE Arterial; TIDAL VOLUME 500 ML; pH 7.38 (7.37-7.43)
[2016-10-20 02:05] LABS: HEMATOCRIT 26.3 % (36.0-48.0); HEMOGLOBIN 8.8 g/dL (12.0-16.0); MEAN CORPUS HGB CONC 33.5 g/dL (32.0-36.0); MEAN CORPUSCULAR HEMOGLOB 28.4 pg (26.0-34.0); MEAN CORPUSCULAR VOLUME 84.8 fL (80-100); MEAN PLATELET VOLUME 9.5 fL (9.2-13.0); NUCLEATED RED BLOOD CELLS 17.2 /100WBC (0-0); RBC DISTRIBUTION WIDTH 14.6 % (12.0-16.0)
[2016-10-20 02:09] LABS: INTERNATIONAL NORMAL RATI 3.8 UNITS (-); PLATELET COUNT 74 10/3/uL (150-400); WHITE BLOOD CELLS 25.5 10/3/uL (4.5-10.5)
[2016-10-20 02:10] LABS: MANUAL DIFF YES %
[2016-10-20 02:16] LABS: BUN (BLOOD UREA NITROGEN) 53 MG/DL (6-23); CALCIUM, SERUM 7.1 MG/DL (8.5-10.4); CHLORIDE, SERUM 91 MMOL/L (96-112); CO2 (CARBON DIOXIDE) 30 MMOL/L (24-34); CREATININE 1.62 MG/DL (0.55-1.02); GFR AFRICAN AMERICAN 36 ML/MIN (>=60); GFR NON AFRICAN AMERICAN 31 ML/MIN (>=60); GLUCOSE, SERUM 68 MG/DL (60-99); SODIUM, SERUM 132 MMOL/L (135-148)
[2016-10-20 02:25] LABS: ASCORBIC ACID (UR NOT ORDER) 40 (NEG); BILIRUBIN, URINE NEGATIVE (NEG); KETONE, URINE TRACE MG/DL (NEG); LEUKOCYTE ESTERASE(NOT OR LARGE (NEG); WBC (NOT ORDERED) (RFLEX) > 182 (0-5)
[2016-10-20 02:33] LABS: PROTIME (NOT ORD) 37.3 SEC (12.0-14.5)
[2016-10-20 02:38] LABS: BAND NEUTROPHILS 15 %; EOSINOPHILS 1 %; EOSINOPHILS ABSOLUTE (CALC) 0.26 10/3/uL (0.0-0.53); IMMATURE GRANS ABSOLUTE (CALC) 1.28 10/3/uL (0.0-0.11); LYMPHOCYTES 18 %; LYMPHOCYTES ABSOLUTE (CALC) 4.59 10/3/uL (0.67-4.30); METAMYELOCYTES 4 %; MONOCYTES 1 %; MONOCYTES ABSOLUTE (CALC) 0.26 10/3/uL (0.21-1.20); MYELOCYTES 1 %; NEUTROPHILS ABSOLUTE (CALC) 19.13 10/3/uL (2.02-8.40); SEGMENTED NEUTROPHIL (0) 60 %; TOTAL NUCLEATED CELLS 100
[2016-10-20 02:39] LABS: PLATELET ESTIMATE DEC (ADEQUATE); POLYCHROMASIA 1+ (2-5/OIF) (0-1/OIF)
[2016-10-20 03:47] LABS: BE (BASE EXCESS) 5.6 MEQ/L (0 +/- 2.5); CARBOXYHEMOGLOBIN 0.3 % (0-3); HCO3 (ACTUAL BICARBONATE) 29.3 MEQ/L (23-27); HEMOBLOGIN CONTENT 8.9 G/DL (12-16); INSTRUMENT SERIAL # 11843; METHEMOGLOBIN 0.3 % (0-3); MODE CMV; O2 CONTENT 11.8 VOL% (18-24); OPERATOR ID 23712; PCO2 (CO2 TENSION) 39 MMHG (35-45); PO2 (O2 TENSION) 72 MMHG (79-93); SAMPLE Arterial; TIDAL VOLUME 500 ML; pH 7.49 (7.37-7.43)
[2016-10-20 09:47] LABS: HEMATOCRIT 23.7 % (36.0-48.0); HEMOGLOBIN 7.8 g/dL (12.0-16.0); MEAN CORPUS HGB CONC 32.9 g/dL (32.0-36.0); MEAN CORPUSCULAR HEMOGLOB 28.3 pg (26.0-34.0); MEAN CORPUSCULAR VOLUME 85.9 fL (80-100); MEAN PLATELET VOLUME 10.6 fL (9.2-13.0); PLATELET COUNT 74 10/3/uL (150-400); RBC DISTRIBUTION WIDTH 15.1 % (12.0-16.0); RED CELL COUNT 2.76 10/6/uL (4.0-5.6); WHITE BLOOD CELLS 23.7 10/3/uL (4.5-10.5)
[2016-10-20 09:48] LABS: MANUAL DIFF YES %
[2016-10-20 10:11] LABS: BAND NEUTROPHILS 5 %; EOSINOPHILS 2 %; EOSINOPHILS ABSOLUTE (CALC) 0.47 10/3/uL (0.0-0.53); LYMPHOCYTES 10 %; LYMPHOCYTES ABSOLUTE (CALC) 2.37 10/3/uL (0.67-4.30); MONOCYTES 12 %; MONOCYTES ABSOLUTE (CALC) 2.84 10/3/uL (0.21-1.20); NEUTROPHILS ABSOLUTE (CALC) 18.01 10/3/uL (2.02-8.40); TOTAL NUCLEATED CELLS 100
[2016-10-20 10:12] LABS: METAMYELOCYTES 1 %; MICROCYTES 1+ (5-10/OIF) (0-5/OIF); PLATELET ESTIMATE DEC (ADEQUATE); SEGMENTED NEUTROPHIL (0) 70 %
[2016-10-21 03:56] LABS: PROTIME (NOT ORD) 31.1 SEC (12.0-14.5)
[2016-10-21 03:59] LABS: BUN (BLOOD UREA NITROGEN) 41 MG/DL (6-23); CHLORIDE, SERUM 97 MMOL/L (96-112); CO2 (CARBON DIOXIDE) 29 MMOL/L (24-34); CREATININE 1.28 MG/DL (0.55-1.02); GFR AFRICAN AMERICAN 48 ML/MIN (>=60); GFR NON AFRICAN AMERICAN 41 ML/MIN (>=60); GLUCOSE, SERUM 95 MG/DL (60-99); SODIUM, SERUM 136 MMOL/L (135-148)
[2016-10-21 04:00] LABS: BE (BASE EXCESS) 9.4 MEQ/L (0 +/- 2.5); CARBOXYHEMOGLOBIN 0.3 % (0-3); HCO3 (ACTUAL BICARBONATE) 32.1 MEQ/L (23-27); HEMOBLOGIN CONTENT 8.2 G/DL (12-16); INSTRUMENT SERIAL # 11843; METHEMOGLOBIN 0.3 % (0-3); MODE CMV; O2 CONTENT 10.8 VOL% (18-24); OPERATOR ID 32193; PCO2 (CO2 TENSION) 36 MMHG (35-45); PO2 (O2 TENSION) 64 MMHG (79-93); SAMPLE Arterial; TIDAL VOLUME 500 ML; pH 7.57 (7.37-7.43)
[2016-10-21 04:10] LABS: HEMATOCRIT 23.2 % (36.0-48.0); HEMOGLOBIN 7.5 g/dL (12.0-16.0); MANUAL DIFF YES %; MEAN CORPUS HGB CONC 32.3 g/dL (32.0-36.0); MEAN CORPUSCULAR HEMOGLOB 27.2 pg (26.0-34.0); MEAN CORPUSCULAR VOLUME 84.1 fL (80-100); MEAN PLATELET VOLUME 10.4 fL (9.2-13.0); NUCLEATED RED BLOOD CELLS 4.3 /100WBC (0-0); PLATELET COUNT 110 10/3/uL (150-400); RBC DISTRIBUTION WIDTH 15.6 % (12.0-16.0); RED CELL COUNT 2.76 10/6/uL (4.0-5.6); WHITE BLOOD CELLS 21.6 10/3/uL (4.5-10.5)
[2016-10-21 05:09] LABS: BAND NEUTROPHILS 9 %; IMMATURE GRANS ABSOLUTE (CALC) 1.08 10/3/uL (0.0-0.11); LYMPHOCYTES 7 %; LYMPHOCYTES ABSOLUTE (CALC) 1.51 10/3/uL (0.67-4.30); METAMYELOCYTES 2 %; MONOCYTES 7 %; MONOCYTES ABSOLUTE (CALC) 1.51 10/3/uL (0.21-1.20); MYELOCYTES 3 %; SEGMENTED NEUTROPHIL (0) 72 %; TOTAL NUCLEATED CELLS 100
[2016-10-21 05:10] LABS: GIANT PLATELET OCC; PLATELET ESTIMATE DEC (ADEQUATE); POLYCHROMASIA 1+ (2-5/OIF) (0-1/OIF)
[2016-10-22 05:03] LABS: BUN (BLOOD UREA NITROGEN) 40 MG/DL (6-23); CALCIUM, SERUM 7.2 MG/DL (8.5-10.4); CHLORIDE, SERUM 99 MMOL/L (96-112); CO2 (CARBON DIOXIDE) 28 MMOL/L (24-34); CREATININE 1.42 MG/DL (0.55-1.02); GFR AFRICAN AMERICAN 42 ML/MIN (>=60); GFR NON AFRICAN AMERICAN 37 ML/MIN (>=60); GLUCOSE, SERUM 85 MG/DL (60-99); POTASSIUM, SERUM 3.5 MMOL/L (3.5-5.3); SODIUM, SERUM 136 MMOL/L (135-148)
[2016-10-22 05:05] LABS: INTERNATIONAL NORMAL RATI 3.6 UNITS (-); PROTIME (NOT ORD) 35.5 SEC (12.0-14.5)
[2016-10-22 06:34] LABS: HEMATOCRIT 24.5 % (36.0-48.0); HEMOGLOBIN 7.9 g/dL (12.0-16.0); MEAN CORPUS HGB CONC 32.2 g/dL (32.0-36.0); MEAN CORPUSCULAR HEMOGLOB 27.9 pg (26.0-34.0); MEAN CORPUSCULAR VOLUME 86.6 fL (80-100); PLATELET COUNT 142 10/3/uL (150-400); RBC DISTRIBUTION WIDTH 15.8 % (12.0-16.0); RED CELL COUNT 2.83 10/6/uL (4.0-5.6); WHITE BLOOD CELLS 23.1 10/3/uL (4.5-10.5)
[2016-10-22 06:38] LABS: MANUAL DIFF YES %
[2016-10-22 08:22] LABS: BAND NEUTROPHILS 17 %; IMMATURE GRANS ABSOLUTE (CALC) 0.23 10/3/uL (0.0-0.11); LYMPHOCYTES 15 %; LYMPHOCYTES ABSOLUTE (CALC) 3.47 10/3/uL (0.67-4.30); METAMYELOCYTES 1 %; MONOCYTES 2 %; MONOCYTES ABSOLUTE (CALC) 0.46 10/3/uL (0.21-1.20); NEUTROPHILS ABSOLUTE (CALC) 18.71 10/3/uL (2.02-8.40); NUCLEATED RED BLOOD CELLS 3 /100WBC (0); PLASMA CELL 1 % (0); SEGMENTED NEUTROPHIL (0) 64 %; TOTAL NUCLEATED CELLS 100
[2016-10-22 08:23] LABS: PLATELET ESTIMATE SLT DEC (ADEQUATE); POLYCHROMASIA 1+ (2-5/OIF) (0-1/OIF)
[2016-10-22 09:38] LABS: TROPONIN I 0.25 NG/ML (<0.05)
[2016-10-22 11:23] LABS: ALLENS TEST Pos; BE (BASE EXCESS) 3.3 MEQ/L (0 +/- 2.5); CARBOXYHEMOGLOBIN 0.2 % (0-3); HCO3 (ACTUAL BICARBONATE) 27.4 MEQ/L (23-27); INSTRUMENT SERIAL # 11843; METHEMOGLOBIN 0.4 % (0-3); O2 CONTENT 11.1 VOL% (18-24); PCO2 (CO2 TENSION) 40 MMHG (35-45); PO2 (O2 TENSION) 106 MMHG (79-93); PRESSURE SUPPORT 5 cm.H2O; SAMPLE Arterial; pH 7.46 (7.37-7.43)
[2016-10-22 13:32] LABS: INSTRUMENT SERIAL # 11843; pH 7.45 (7.37-7.43)
[2016-10-22 13:33] LABS: ALLENS TEST Pos; BE (BASE EXCESS) 4.6 MEQ/L (0 +/- 2.5); CARBOXYHEMOGLOBIN 0.3 % (0-3); DEVICE VM; HCO3 (ACTUAL BICARBONATE) 28.9 MEQ/L (23-27); HEMOBLOGIN CONTENT 8.3 G/DL (12-16); METHEMOGLOBIN 0.3 % (0-3); O2 CONTENT 10.3 VOL% (18-24); OPERATOR ID 18642; PCO2 (CO2 TENSION) 42 MMHG (35-45); PO2 (O2 TENSION) 54 MMHG (79-93); SAMPLE Arterial
[2016-10-22 22:09] LABS: ALLENS TEST Pos; BE (BASE EXCESS) 5.7 MEQ/L (0 +/- 2.5); DEVICE VAPOTHERM 35L; HCO3 (ACTUAL BICARBONATE) 28.9 MEQ/L (23-27); INSTRUMENT SERIAL # 11843; OPERATOR ID 32193; PCO2 (CO2 TENSION) 37 MMHG (35-45); PO2 (O2 TENSION) 94 MMHG (79-93); SAMPLE Arterial; pH 7.51 (7.37-7.43)
[2016-10-23 04:34] LABS: HEMATOCRIT 23.5 % (36.0-48.0); HEMOGLOBIN 7.3 g/dL (12.0-16.0); INTERNATIONAL NORMAL RATI 3.8 UNITS (-); MEAN CORPUS HGB CONC 31.1 g/dL (32.0-36.0); MEAN PLATELET VOLUME 9.1 fL (9.2-13.0); NUCLEATED RED BLOOD CELLS 3.2 /100WBC (0-0); PLATELET COUNT 151 10/3/uL (150-400); PROTIME (NOT ORD) 37.1 SEC (12.0-14.5); RBC DISTRIBUTION WIDTH 15.8 % (12.0-16.0); WHITE BLOOD CELLS 23.4 10/3/uL (4.5-10.5)
[2016-10-23 04:35] LABS: MANUAL DIFF YES %
[2016-10-23 04:38] LABS: BUN (BLOOD UREA NITROGEN) 41 MG/DL (6-23); CALCIUM, SERUM 7.1 MG/DL (8.5-10.4); CHLORIDE, SERUM 100 MMOL/L (96-112); CO2 (CARBON DIOXIDE) 28 MMOL/L (24-34); CREATININE 1.44 MG/DL (0.55-1.02); GFR AFRICAN AMERICAN 42 ML/MIN (>=60); GFR NON AFRICAN AMERICAN 36 ML/MIN (>=60); POTASSIUM, SERUM 3.9 MMOL/L (3.5-5.3); SODIUM, SERUM 138 MMOL/L (135-148)
[2016-10-23 04:39] LABS: GLUCOSE, SERUM 61 MG/DL (60-99)
[2016-10-23 05:39] LABS: BAND NEUTROPHILS 12 %; EOSINOPHILS 1 %; EOSINOPHILS ABSOLUTE (CALC) 0.23 10/3/uL (0.0-0.53); LYMPHOCYTES 8 %; LYMPHOCYTES ABSOLUTE (CALC) 1.87 10/3/uL (0.67-4.30); MONOCYTES 2 %; MONOCYTES ABSOLUTE (CALC) 0.47 10/3/uL (0.21-1.20); NEUTROPHILS ABSOLUTE (CALC) 20.83 10/3/uL (2.02-8.40); PLATELET ESTIMATE ADQ (ADEQUATE); SEGMENTED NEUTROPHIL (0) 77 %; TOTAL NUCLEATED CELLS 100; TOXIC GRANULATION SLT; VACUOLATED NEUTROPHILES OCC
[2016-10-23 05:40] LABS: HELMET CELLS OCC (0-2/OIF); POLYCHROMASIA 1+ (2-5/OIF) (0-1/OIF); TARGET CELLS OCC (1-2/OIF) (0-1/OIF)
[2016-10-23 12:10] LABS: DIRECT BILIRUBIN 0.4 MG/DL (0.0-0.4); INDIRECT BILIRUBIN(NOT ORDER) 0.3 MG/DL (0.1-0.9); TOTAL BILIRUBIN 0.7 MG/DL (0-1.2); TOTAL PROTEIN 5.6 G/DL (6.0-8.5)
[2016-10-24 04:15] LABS: INTERNATIONAL NORMAL RATI 4.3 UNITS (-)
[2016-10-24 04:22] LABS: ALBUMIN 2.1 G/DL (3.5-5.0); CALCIUM, SERUM 7.2 MG/DL (8.5-10.4); CHLORIDE, SERUM 99 MMOL/L (96-112); CO2 (CARBON DIOXIDE) 27 MMOL/L (24-34); CREATININE 1.62 MG/DL (0.55-1.02); GFR AFRICAN AMERICAN 36 ML/MIN (>=60); GFR NON AFRICAN AMERICAN 31 ML/MIN (>=60); HEMATOCRIT 23.3 % (36.0-48.0); HEMOGLOBIN 7.5 g/dL (12.0-16.0); MEAN CORPUS HGB CONC 32.2 g/dL (32.0-36.0); MEAN CORPUSCULAR HEMOGLOB 27.4 pg (26.0-34.0); MEAN PLATELET VOLUME 9.5 fL (9.2-13.0); PHOSPHORUS, SERUM 3.7 MG/DL (2.5-4.5); POTASSIUM, SERUM 3.7 MMOL/L (3.5-5.3); RED CELL COUNT 2.74 10/6/uL (4.0-5.6); SODIUM, SERUM 137 MMOL/L (135-148)
[2016-10-24 04:24] LABS: BUN (BLOOD UREA NITROGEN) 56 MG/DL (6-23); GLUCOSE, SERUM 123 MG/DL (60-99)
[2016-10-24 04:34] LABS: PLATELET COUNT 218 10/3/uL (150-400); WHITE BLOOD CELLS 25.3 10/3/uL (4.5-10.5)
[2016-10-24 04:35] LABS: MANUAL DIFF YES %
[2016-10-24 05:17] LABS: BAND NEUTROPHILS 7 %; LYMPHOCYTES 7 %; LYMPHOCYTES ABSOLUTE (CALC) 1.77 10/3/uL (0.67-4.30); MONOCYTES 2 %; MONOCYTES ABSOLUTE (CALC) 0.51 10/3/uL (0.21-1.20); NEUTROPHILS ABSOLUTE (CALC) 23.02 10/3/uL (2.02-8.40); SEGMENTED NEUTROPHIL (0) 84 %; TOTAL NUCLEATED CELLS 100
[2016-10-24 05:18] LABS: PLATELET ESTIMATE ADQ (ADEQUATE); POLYCHROMASIA 1+ (2-5/OIF) (0-1/OIF)
[2016-10-24 11:13] LABS: PROCALCITONIN 1.23 ng/mL (<0.5)
[2016-10-24 11:27] LABS: ALKALINE PHOSPHATASE 490 U/L (45-117); DIRECT BILIRUBIN 0.6 MG/DL (0.0-0.4); INDIRECT BILIRUBIN(NOT ORDER) 0.4 MG/DL (0.1-0.9); SGOT(AST) 234 U/L (5-40); SGPT(ALT) 218 U/L (5-65); TOTAL PROTEIN 6.2 G/DL (6.0-8.5)
[2016-10-25 04:07] LABS: INTERNATIONAL NORMAL RATI 2.7 UNITS (-)
[2016-10-25 04:09] LABS: PROTIME (NOT ORD) 28.7 SEC (12.0-14.5)
[2016-10-25 04:13] LABS: HEMATOCRIT 23.9 % (36.0-48.0); HEMOGLOBIN 7.5 g/dL (12.0-16.0); MEAN CORPUS HGB CONC 31.4 g/dL (32.0-36.0); MEAN CORPUSCULAR HEMOGLOB 27.1 pg (26.0-34.0); MEAN CORPUSCULAR VOLUME 86.3 fL (80-100); MEAN PLATELET VOLUME 9.8 fL (9.2-13.0); NUCLEATED RED BLOOD CELLS 5.6 /100WBC (0-0); PLATELET COUNT 237 10/3/uL (150-400); RBC DISTRIBUTION WIDTH 16.1 % (12.0-16.0); RED CELL COUNT 2.77 10/6/uL (4.0-5.6)
[2016-10-25 04:14] LABS: MANUAL DIFF YES %; WHITE BLOOD CELLS 26.5 10/3/uL (4.5-10.5)
[2016-10-25 04:17] LABS: ALBUMIN 2.2 G/DL (3.5-5.0); BUN (BLOOD UREA NITROGEN) 57 MG/DL (6-23); CALCIUM, SERUM 7.3 MG/DL (8.5-10.4); CHLORIDE, SERUM 96 MMOL/L (96-112); CO2 (CARBON DIOXIDE) 27 MMOL/L (24-34); CREATININE 1.48 MG/DL (0.55-1.02); DIRECT BILIRUBIN 0.5 MG/DL (0.0-0.4); GFR AFRICAN AMERICAN 40 ML/MIN (>=60); GFR NON AFRICAN AMERICAN 35 ML/MIN (>=60); INDIRECT BILIRUBIN(NOT ORDER) 0.4 MG/DL (0.1-0.9); PHOSPHORUS, SERUM 2.9 MG/DL (2.5-4.5); POTASSIUM, SERUM 4.4 MMOL/L (3.5-5.3); SGOT(AST) 91 U/L (5-40); SGPT(ALT) 155 U/L (5-65); SODIUM, SERUM 135 MMOL/L (135-148); TOTAL BILIRUBIN 0.9 MG/DL (0-1.2)
[2016-10-25 04:19] LABS: ALKALINE PHOSPHATASE 404 U/L (45-117); GLUCOSE, SERUM 297 MG/DL (60-99)
[2016-10-25 04:38] LABS: BAND NEUTROPHILS 3 %; IMMATURE GRANS ABSOLUTE (CALC) 1.06 10/3/uL (0.0-0.11); LYMPHOCYTES 9 %; LYMPHOCYTES ABSOLUTE (CALC) 2.39 10/3/uL (0.67-4.30); METAMYELOCYTES 2 %; MONOCYTES 6 %; MONOCYTES ABSOLUTE (CALC) 1.59 10/3/uL (0.21-1.20); MYELOCYTES 2 %; NEUTROPHILS ABSOLUTE (CALC) 21.47 10/3/uL (2.02-8.40); PLATELET ESTIMATE ADQ (ADEQUATE); POLYCHROMASIA 1+ (2-5/OIF) (0-1/OIF); SEGMENTED NEUTROPHIL (0) 78 %; TARGET CELLS FEW (3-10/OIF) (0-1/OIF); TOTAL NUCLEATED CELLS 100
[2016-10-26 04:25] LABS: INTERNATIONAL NORMAL RATI 2.2 UNITS (-); PROTIME (NOT ORD) 24.4 SEC (12.0-14.5)
[2016-10-26 04:32] LABS: ALBUMIN 2.2 G/DL (3.5-5.0); BUN (BLOOD UREA NITROGEN) 59 MG/DL (6-23); CALCIUM, SERUM 7.3 MG/DL (8.5-10.4); CHLORIDE, SERUM 99 MMOL/L (96-112); CO2 (CARBON DIOXIDE) 30 MMOL/L (24-34); DIRECT BILIRUBIN 0.5 MG/DL (0.0-0.4); GFR AFRICAN AMERICAN 52 ML/MIN (>=60); GFR NON AFRICAN AMERICAN 45 ML/MIN (>=60); GLUCOSE, SERUM 248 MG/DL (60-99); HEMATOCRIT 24.9 % (36.0-48.0); HEMOGLOBIN 7.7 g/dL (12.0-16.0); INDIRECT BILIRUBIN(NOT ORDER) 0.3 MG/DL (0.1-0.9); MEAN CORPUS HGB CONC 30.9 g/dL (32.0-36.0); MEAN CORPUSCULAR HEMOGLOB 27.1 pg (26.0-34.0); MEAN CORPUSCULAR VOLUME 87.7 fL (80-100); MEAN PLATELET VOLUME 9.6 fL (9.2-13.0); NUCLEATED RED BLOOD CELLS 5.9 /100WBC (0-0); PHOSPHORUS, SERUM 2.5 MG/DL (2.5-4.5); PLATELET COUNT 247 10/3/uL (150-400); POTASSIUM, SERUM 4.4 MMOL/L (3.5-5.3); RBC DISTRIBUTION WIDTH 16.1 % (12.0-16.0); RED CELL COUNT 2.84 10/6/uL (4.0-5.6); SGOT(AST) 96 U/L (5-40); SGPT(ALT) 149 U/L (5-65); SODIUM, SERUM 138 MMOL/L (135-148); TOTAL BILIRUBIN 0.8 MG/DL (0-1.2)
[2016-10-26 04:33] LABS: MANUAL DIFF YES %
[2016-10-26 04:37] LABS: ALKALINE PHOSPHATASE 369 U/L (45-117)
[2016-10-26 04:51] LABS: BAND NEUTROPHILS 1 %; IMMATURE GRANS ABSOLUTE (CALC) 0.96 10/3/uL (0.0-0.11); LYMPHOCYTES 3 %; LYMPHOCYTES ABSOLUTE (CALC) 0.72 10/3/uL (0.67-4.30); METAMYELOCYTES 3 %; MONOCYTES 7 %; MONOCYTES ABSOLUTE (CALC) 1.68 10/3/uL (0.21-1.20); MYELOCYTES 1 %; NEUTROPHILS ABSOLUTE (CALC) 20.64 10/3/uL (2.02-8.40); PLATELET ESTIMATE ADQ (ADEQUATE); SEGMENTED NEUTROPHIL (0) 85 %; TOTAL NUCLEATED CELLS 100
[2016-10-26 04:52] LABS: TARGET CELLS OCC (1-2/OIF) (0-1/OIF)
[2016-10-26 06:13] LABS: PROCALCITONIN 0.45 ng/mL (<0.5)
[2016-10-26 12:59] LABS: ASCORBIC ACID (UR NOT ORDER) 40 (NEG); BILIRUBIN, URINE NEGATIVE (NEG); KETONE, URINE NEGATIVE (NEG); LEUKOCYTE ESTERASE(NOT OR NEG (NEG); WBC (NOT ORDERED) (RFLEX) 1 (0-5)
[2016-10-27 04:20] LABS: INTERNATIONAL NORMAL RATI 2.2 UNITS (-); PROTIME (NOT ORD) 24.3 SEC (12.0-14.5)
[2016-10-27 04:32] LABS: BASOPHILS 0.3 %; BASOPHILS ABSOLUTE 0.06 10/3/uL (0.0-0.16); EOSINOPHILS 0 %; EOSINOPHILS ABSOLUTE 0.01 10/3/uL (0.0-0.53); HEMATOCRIT 25.3 % (36.0-48.0); IMMATURE GRANULOCYTES 1.3 %; IMMATURE GRANULOCYTES ABSOLUTE 0.29 10/3/uL (0.0-0.11); LYMPHOCYTES 13.2 %; LYMPHOCYTES ABSOLUTE 2.97 10/3/uL (0.67-4.30); MEAN CORPUS HGB CONC 31.6 g/dL (32.0-36.0); MEAN CORPUSCULAR HEMOGLOB 27.9 pg (26.0-34.0); MEAN CORPUSCULAR VOLUME 88.2 fL (80-100); MEAN PLATELET VOLUME 9.6 fL (9.2-13.0); MONOCYTES 7.8 %; MONOCYTES ABSOLUTE 1.74 10/3/uL (0.21-1.20); NEUTROPHILS 77.4 %; NEUTROPHILS ABSOLUTE 17.37 10/3/uL (2.02-8.40); NUCLEATED RED BLOOD CELLS 5.7 /100WBC (0-0); PLATELET COUNT 244 10/3/uL (150-400); RBC DISTRIBUTION WIDTH 16.7 % (12.0-16.0); RED CELL COUNT 2.87 10/6/uL (4.0-5.6); WHITE BLOOD CELLS 22.4 10/3/uL (4.5-10.5)
[2016-10-27 04:34] LABS: MANUAL DIFF NO %
[2016-10-27 04:42] LABS: ALBUMIN 2.3 G/DL (3.5-5.0); BUN (BLOOD UREA NITROGEN) 55 MG/DL (6-23); CALCIUM, SERUM 7.5 MG/DL (8.5-10.4); CHLORIDE, SERUM 98 MMOL/L (96-112); CO2 (CARBON DIOXIDE) 32 MMOL/L (24-34); CREATININE 1.13 MG/DL (0.55-1.02); GFR AFRICAN AMERICAN 56 ML/MIN (>=60); GFR NON AFRICAN AMERICAN 48 ML/MIN (>=60); GLUCOSE, SERUM 228 MG/DL (60-99); PHOSPHORUS, SERUM 2.5 MG/DL (2.5-4.5); POTASSIUM, SERUM 4.3 MMOL/L (3.5-5.3); SODIUM, SERUM 138 MMOL/L (135-148)
[2016-10-27 05:43] LABS: BAND NEUTROPHILS 1 %; IMMATURE GRANS ABSOLUTE (CALC) 0.45 10/3/uL (0.0-0.11); LYMPHOCYTES 11 %; LYMPHOCYTES ABSOLUTE (CALC) 2.46 10/3/uL (0.67-4.30); METAMYELOCYTES 2 %; MONOCYTES 1 %; MONOCYTES ABSOLUTE (CALC) 0.22 10/3/uL (0.21-1.20); NEUTROPHILS ABSOLUTE (CALC) 19.26 10/3/uL (2.02-8.40); SEGMENTED NEUTROPHIL (0) 85 %; TOTAL NUCLEATED CELLS 100
[2016-10-27 05:44] LABS: ANISOCYTOSIS 1+ (5-10/OIF) (0-5/OIF); PLATELET ESTIMATE ADQ (ADEQUATE); POLYCHROMASIA 1+ (2-5/OIF) (0-1/OIF)
[2016-10-28 05:17] LABS: ALBUMIN 2.1 G/DL (3.5-5.0); BASOPHILS 0.1 %; BASOPHILS ABSOLUTE 0.03 10/3/uL (0.0-0.16); CALCIUM, SERUM 7.9 MG/DL (8.5-10.4); CHLORIDE, SERUM 98 MMOL/L (96-112); CO2 (CARBON DIOXIDE) 32 MMOL/L (24-34); CREATININE 0.95 MG/DL (0.55-1.02); EOSINOPHILS 0.5 %; GFR AFRICAN AMERICAN 69 ML/MIN (>=60); GFR NON AFRICAN AMERICAN 59 ML/MIN (>=60); HEMATOCRIT 25.8 % (36.0-48.0); HEMOGLOBIN 8.2 g/dL (12.0-16.0); LYMPHOCYTES ABSOLUTE 3.27 10/3/uL (0.67-4.30); MEAN CORPUS HGB CONC 31.8 g/dL (32.0-36.0); MEAN CORPUSCULAR HEMOGLOB 28.1 pg (26.0-34.0); MEAN CORPUSCULAR VOLUME 88.4 fL (80-100); MEAN PLATELET VOLUME 9.4 fL (9.2-13.0); MONOCYTES 5.4 %; MONOCYTES ABSOLUTE 1.11 10/3/uL (0.21-1.20); NEUTROPHILS ABSOLUTE 15.72 10/3/uL (2.02-8.40); NUCLEATED RED BLOOD CELLS 2.4 /100WBC (0-0); PHOSPHORUS, SERUM 2.2 MG/DL (2.5-4.5); PLATELET COUNT 252 10/3/uL (150-400); RBC DISTRIBUTION WIDTH 17.2 % (12.0-16.0); RED CELL COUNT 2.92 10/6/uL (4.0-5.6); SODIUM, SERUM 138 MMOL/L (135-148); WHITE BLOOD CELLS 20.4 10/3/uL (4.5-10.5)
[2016-10-28 05:18] LABS: BUN (BLOOD UREA NITROGEN) 47 MG/DL (6-23); GLUCOSE, SERUM 151 MG/DL (60-99)
[2016-10-28 05:19] LABS: MANUAL DIFF NO %
[2016-10-28 05:37] LABS: PROTIME (NOT ORD) 22.8 SEC (12.0-14.5)
[2016-10-29 04:02] LABS: BASOPHILS 0.2 %; BASOPHILS ABSOLUTE 0.05 10/3/uL (0.0-0.16); EOSINOPHILS 0.9 %; EOSINOPHILS ABSOLUTE 0.19 10/3/uL (0.0-0.53); HEMATOCRIT 26.1 % (36.0-48.0); IMMATURE GRANULOCYTES 0.6 %; IMMATURE GRANULOCYTES ABSOLUTE 0.12 10/3/uL (0.0-0.11); INTERNATIONAL NORMAL RATI 1.9 UNITS (-); LYMPHOCYTES 15.8 %; MANUAL DIFF NO %; MEAN CORPUS HGB CONC 30.7 g/dL (32.0-36.0); MEAN CORPUSCULAR HEMOGLOB 27.2 pg (26.0-34.0); MEAN CORPUSCULAR VOLUME 88.8 fL (80-100); MEAN PLATELET VOLUME 9.5 fL (9.2-13.0); MONOCYTES 4.5 %; MONOCYTES ABSOLUTE 0.93 10/3/uL (0.21-1.20); NEUTROPHILS ABSOLUTE 16.24 10/3/uL (2.02-8.40); PLATELET COUNT 216 10/3/uL (150-400); PROTIME (NOT ORD) 21.8 SEC (12.0-14.5); RBC DISTRIBUTION WIDTH 17.1 % (12.0-16.0); RED CELL COUNT 2.94 10/6/uL (4.0-5.6); WHITE BLOOD CELLS 20.8 10/3/uL (4.5-10.5)
[2016-10-29 04:07] LABS: BUN (BLOOD UREA NITROGEN) 43 MG/DL (6-23); CALCIUM, SERUM 7.3 MG/DL (8.5-10.4); CHLORIDE, SERUM 94 MMOL/L (96-112); CO2 (CARBON DIOXIDE) 31 MMOL/L (24-34); CREATININE 0.99 MG/DL (0.55-1.02); GFR AFRICAN AMERICAN 66 ML/MIN (>=60); GFR NON AFRICAN AMERICAN 57 ML/MIN (>=60); GLUCOSE, SERUM 186 MG/DL (60-99); SODIUM, SERUM 137 MMOL/L (135-148)
[2016-10-29 16:58] LABS: PROCALCITONIN 0.29 ng/mL (<0.5)
[2016-10-30 03:52] LABS: INTERNATIONAL NORMAL RATI 1.9 UNITS (-)
[2016-10-30 03:57] LABS: TOTAL BILIRUBIN 0.6 MG/DL (0-1.2); TOTAL PROTEIN 5.9 G/DL (6.0-8.5)
[2016-10-30 04:04] LABS: DIRECT BILIRUBIN 0.3 MG/DL (0.0-0.4); INDIRECT BILIRUBIN(NOT ORDER) 0.3 MG/DL (0.1-0.9)
[2016-10-31 04:54] LABS: HEMATOCRIT 25.9 % (36.0-48.0); MEAN CORPUS HGB CONC 30.9 g/dL (32.0-36.0); MEAN CORPUSCULAR HEMOGLOB 27.1 pg (26.0-34.0); MEAN CORPUSCULAR VOLUME 87.8 fL (80-100); MEAN PLATELET VOLUME 9.7 fL (9.2-13.0); PLATELET COUNT 222 10/3/uL (150-400); RBC DISTRIBUTION WIDTH 16.7 % (12.0-16.0); RED CELL COUNT 2.95 10/6/uL (4.0-5.6); WHITE BLOOD CELLS 16.7 10/3/uL (4.5-10.5)
[2016-10-31 04:55] LABS: ALBUMIN 2.1 G/DL (3.5-5.0); DIRECT BILIRUBIN 0.4 MG/DL (0.0-0.4); INDIRECT BILIRUBIN(NOT ORDER) 0.4 MG/DL (0.1-0.9); TOTAL BILIRUBIN 0.8 MG/DL (0-1.2); TOTAL PROTEIN 5.9 G/DL (6.0-8.5)
[2016-10-31 04:59] LABS: MANUAL DIFF YES %; NUCLEATED RED BLOOD CELLS 1.1 /100WBC (0-0)
[2016-10-31 05:17] LABS: INTERNATIONAL NORMAL RATI 2.3 UNITS (-)
[2016-10-31 05:26] LABS: LYMPHOCYTES 9 %; MONOCYTES 1 %; MONOCYTES ABSOLUTE (CALC) 0.17 10/3/uL (0.21-1.20); NEUTROPHILS ABSOLUTE (CALC) 15.03 10/3/uL (2.02-8.40); SEGMENTED NEUTROPHIL (0) 90 %; TOTAL NUCLEATED CELLS 100
[2016-10-31 05:27] LABS: RBC MORPHOLOGY ABN (NORMAL)
[2016-10-31 22:24] LABS: ALLENS TEST Pos; BE (BASE EXCESS) 8.8 MEQ/L (0 +/- 2.5); DEVICE NC; HCO3 (ACTUAL BICARBONATE) 32.5 MEQ/L (23-27); HEMOBLOGIN CONTENT 8.8 G/DL (12-16); INSTRUMENT SERIAL # 8083; METHEMOGLOBIN 0.2 % (0-3); O2 CONTENT 11.2 VOL% (18-24); OPERATOR ID 33214; PCO2 (CO2 TENSION) 41 MMHG (35-45); PO2 (O2 TENSION) 60 MMHG (79-93); SAMPLE Arterial; pH 7.52 (7.37-7.43)
[2016-11-01 03:13] LABS: ALLENS TEST Pos; BE (BASE EXCESS) 11.8 MEQ/L (0 +/- 2.5); CARBOXYHEMOGLOBIN 0.9 % (0-3); HCO3 (ACTUAL BICARBONATE) 35.9 MEQ/L (23-27); HEMOBLOGIN CONTENT 8.4 G/DL (12-16); INSTRUMENT SERIAL # 8083; METHEMOGLOBIN 0.1 % (0-3); O2 CONTENT 11.3 VOL% (18-24); OPERATOR ID 33214; PCO2 (CO2 TENSION) 46 MMHG (35-45); PO2 (O2 TENSION) 77 MMHG (79-93); SAMPLE Arterial; pH 7.51 (7.37-7.43)
[2016-11-01 08:29] LABS: BASOPHILS 0.1 %; BASOPHILS ABSOLUTE 0.01 10/3/uL (0.0-0.16); EOSINOPHILS 0.3 %; EOSINOPHILS ABSOLUTE 0.05 10/3/uL (0.0-0.53); HEMATOCRIT 25.5 % (36.0-48.0); HEMOGLOBIN 8.1 g/dL (12.0-16.0); IMMATURE GRANULOCYTES 0.4 %; IMMATURE GRANULOCYTES ABSOLUTE 0.07 10/3/uL (0.0-0.11); LYMPHOCYTES 10.4 %; LYMPHOCYTES ABSOLUTE 1.79 10/3/uL (0.67-4.30); MANUAL DIFF NO %; MEAN CORPUS HGB CONC 31.8 g/dL (32.0-36.0); MEAN CORPUSCULAR HEMOGLOB 27.1 pg (26.0-34.0); MEAN CORPUSCULAR VOLUME 85.3 fL (80-100); MEAN PLATELET VOLUME 9.6 fL (9.2-13.0); MONOCYTES 6.1 %; MONOCYTES ABSOLUTE 1.05 10/3/uL (0.21-1.20); NEUTROPHILS 82.7 %; NEUTROPHILS ABSOLUTE 14.28 10/3/uL (2.02-8.40); NUCLEATED RED BLOOD CELLS 0.7 /100WBC (0-0); PLATELET COUNT 203 10/3/uL (150-400); RBC DISTRIBUTION WIDTH 16.7 % (12.0-16.0); RED CELL COUNT 2.99 10/6/uL (4.0-5.6); WHITE BLOOD CELLS 17.3 10/3/uL (4.5-10.5)
[2016-11-01 08:39] LABS: INTERNATIONAL NORMAL RATI 2.7 UNITS (-); PARTIAL THROMBO TIME 39.2 SEC (22.5-37.2); PROTIME (NOT ORD) 28.5 SEC (12.0-14.5)
[2016-11-01 08:46] LABS: CALCIUM, SERUM 7.4 MG/DL (8.5-10.4); CHLORIDE, SERUM 91 MMOL/L (96-112); CO2 (CARBON DIOXIDE) 34 MMOL/L (24-34); CREATININE 1.13 MG/DL (0.55-1.02); DIRECT BILIRUBIN 0.5 MG/DL (0.0-0.4); GFR AFRICAN AMERICAN 56 ML/MIN (>=60); GFR NON AFRICAN AMERICAN 48 ML/MIN (>=60); POTASSIUM, SERUM 4.5 MMOL/L (3.5-5.3); SGOT(AST) 229 U/L (5-40); SGPT(ALT) 143 U/L (5-65); SODIUM, SERUM 135 MMOL/L (135-148); TOTAL PROTEIN 5.9 G/DL (6.0-8.5)
[2016-11-01 08:47] LABS: ALKALINE PHOSPHATASE 335 U/L (45-117); BUN (BLOOD UREA NITROGEN) 55 MG/DL (6-23); GLUCOSE, SERUM 75 MG/DL (60-99); INDIRECT BILIRUBIN(NOT ORDER) 0.9 MG/DL (0.1-0.9); TOTAL BILIRUBIN 1.4 MG/DL (0-1.2)
[2016-11-01 16:10] LABS: CARBOXYHEMOGLOBIN 0.3 % (0-3); HCO3 (ACTUAL BICARBONATE) 27.4 MEQ/L (23-27); HEMOBLOGIN CONTENT 8.7 G/DL (12-16); INSTRUMENT SERIAL # 11843; METHEMOGLOBIN 0.5 % (0-3); MODE CMV; O2 CONTENT 10.9 VOL% (18-24); OPERATOR ID 35188; PCO2 (CO2 TENSION) 70 MMHG (35-45); PO2 (O2 TENSION) 77 MMHG (79-93); SAMPLE Arterial; TIDAL VOLUME 450 ML; pH 7.21 (7.37-7.43)
[2016-11-01 16:11] LABS: ALLENS TEST Pos
[2016-11-01 16:38] LABS: CHLORIDE, SERUM 89 MMOL/L (96-112); CO2 (CARBON DIOXIDE) 30 MMOL/L (24-34); SODIUM, SERUM 138 MMOL/L (135-148)
[2016-11-01 16:39] LABS: BUN (BLOOD UREA NITROGEN) 64 MG/DL (6-23); CALCIUM, SERUM 8.9 MG/DL (8.5-10.4); CREATININE 1.76 MG/DL (0.55-1.02); GFR AFRICAN AMERICAN 33 ML/MIN (>=60); GFR NON AFRICAN AMERICAN 28 ML/MIN (>=60); GLUCOSE, SERUM 128 MG/DL (60-99); POTASSIUM, SERUM 6.3 MMOL/L (3.5-5.3)
[2016-11-01 16:43] LABS: HEMATOCRIT 26.6 % (36.0-48.0); HEMOGLOBIN 7.9 g/dL (12.0-16.0); MEAN CORPUSCULAR HEMOGLOB 27.2 pg (26.0-34.0); NUCLEATED RED BLOOD CELLS 2.3 /100WBC (0-0); PLATELET COUNT 168 10/3/uL (150-400); WHITE BLOOD CELLS 18.9 10/3/uL (4.5-10.5)
[2016-11-01 16:45] LABS: MANUAL DIFF YES %; MEAN CORPUS HGB CONC 29.7 g/dL (32.0-36.0); MEAN CORPUSCULAR VOLUME 91.7 fL (80-100)
[2016-11-01 17:06] LABS: INTERNATIONAL NORMAL RATI 3.8 UNITS (-); PARTIAL THROMBO TIME 37.7 SEC (22.5-37.2)
[2016-11-01 17:08] LABS: PROTIME (NOT ORD) 37.3 SEC (12.0-14.5)
[2016-11-01 17:10] LABS: ALBUMIN 1.7 G/DL (3.5-5.0); DIRECT BILIRUBIN 0.6 MG/DL (0.0-0.4); INDIRECT BILIRUBIN(NOT ORDER) 0.5 MG/DL (0.1-0.9); SGOT(AST) 404 U/L (5-40); SGPT(ALT) 209 U/L (5-65); TOTAL BILIRUBIN 1.1 MG/DL (0-1.2); TOTAL PROTEIN 5.1 G/DL (6.0-8.5)
[2016-11-01 17:11] LABS: ALKALINE PHOSPHATASE 432 U/L (45-117); PHOSPHORUS, SERUM 8.9 MG/DL (2.5-4.5)
[2016-11-01 17:12] LABS: TROPONIN I 0.23 NG/ML (<0.05)
[2016-11-01 17:15] LABS: D-DIMER QUANTITATIVE 14.74 ug/mLFEU (< 0.50)
[2016-11-01 17:30] LABS: ANISOCYTOSIS 1+ (5-10/OIF) (0-5/OIF); EOSINOPHILS 1 %; EOSINOPHILS ABSOLUTE (CALC) 0.19 10/3/uL (0.0-0.53); IMMATURE GRANS ABSOLUTE (CALC) 0.19 10/3/uL (0.0-0.11); LYMPHOCYTES 23 %; LYMPHOCYTES ABSOLUTE (CALC) 4.35 10/3/uL (0.67-4.30); METAMYELOCYTES 1 %; MONOCYTES 4 %; MONOCYTES ABSOLUTE (CALC) 0.76 10/3/uL (0.21-1.20); NEUTROPHILS ABSOLUTE (CALC) 13.42 10/3/uL (2.02-8.40); PLATELET ESTIMATE ADQ (ADEQUATE); SEGMENTED NEUTROPHIL (0) 71 %; TOTAL NUCLEATED CELLS 100
[2016-11-01 17:49] LABS: PROCALCITONIN 0.64 ng/mL (<0.5)
== END 2016-11-01 21:39 | disposition expired | DRG 235 ==
LOC: CVICU 15:55 → 5NO 10-15 13:02 → CVICU 10-19 14:25 → IMCU 10-31 15:06 → CVICU 11-01 16:10
PROVIDERS: Anesthesiology; Internal Medicine; Internal Medicine Cardiovascular Disease; Internal Medicine Critical Care Medicine; Internal Medicine Nephrology; Internal Medicine Pulmonary Disease; Nurse Practitioner Family; Thoracic Surgery (Cardiothoracic Vascular Surgery)
PROC: 5A1221Z Performance of Cardiac Output, Continuous (ICD-10-PCS; 2016-10-13)
PROC: B246ZZ4 Ultrasonography of Right and Left Heart, Transesophageal (ICD-10-PCS; 2016-10-13)
PROC: 021009W Bypass Coronary Artery, One Artery from Aorta with Autologous Venous Tissue, Open Approach (ICD-10-PCS; principal; 2016-10-13 07:30)
PROC: 0210099 Bypass Coronary Artery, One Artery from Left Internal Mammary with Autologous Venous Tissue, Open Approach (ICD-10-PCS; 2016-10-13 07:30)
PROC: 5A1935Z Respiratory Ventilation, Less than 24 Consecutive Hours (ICD-10-PCS; 2016-10-13 07:30)
PROC: 06BP4ZZ Excision of Right Saphenous Vein, Percutaneous Endoscopic Approach (ICD-10-PCS; 2016-10-13 07:30)
PROC: 5A1945Z Respiratory Ventilation, 24-96 Consecutive Hours (ICD-10-PCS; 2016-10-19)
PROC: 0BH17EZ Insertion of Endotracheal Airway into Trachea, Via Natural or Artificial Opening (ICD-10-PCS; 2016-10-19)
PROC: 05HM33Z Insertion of Infusion Device into Right Internal Jugular Vein, Percutaneous Approach (ICD-10-PCS; 2016-10-25)
PROC: B5131ZA Fluoroscopy of Right Jugular Veins using Low Osmolar Contrast, Guidance (ICD-10-PCS; 2016-10-25)
PROC: 0BH17EZ Insertion of Endotracheal Airway into Trachea, Via Natural or Artificial Opening (ICD-10-PCS; 2016-11-01)
PROC: 06HM33Z Insertion of Infusion Device into Right Femoral Vein, Percutaneous Approach (ICD-10-PCS; 2016-11-01)
PROC: B54BZZA Ultrasonography of Right Lower Extremity Veins, Guidance (ICD-10-PCS; 2016-11-01)
PROC: 04HY32Z Insertion of Monitoring Device into Lower Artery, Percutaneous Approach (ICD-10-PCS; 2016-11-01)
DX: I21.4 Non-ST elevation (NSTEMI) myocardial infarction (principal); I46.9 Cardiac arrest, cause unspecified; N17.0 Acute kidney failure with tubular necrosis; J96.01 Acute respiratory failure with hypoxia; R57.0 Cardiogenic shock; I50.33 Acute on chronic diastolic (congestive) heart failure; J18.9 Pneumonia, unspecified organism; J90 Pleural effusion, not elsewhere classified; I11.0 Hypertensive heart disease with heart failure; E87.1 Hypo-osmolality and hyponatremia; J98.11 Atelectasis; N39.0 Urinary tract infection, site not specified; I97.89 Other postprocedural complications and disorders of the circulatory system, not elsewhere classified; E66.01 Morbid (severe) obesity due to excess calories; I27.2 Other secondary pulmonary hypertension; I25.110 Atherosclerotic heart disease of native coronary artery with unstable angina pectoris; E11.319 Type 2 diabetes mellitus with unspecified diabetic retinopathy without macular edema; I34.0 Nonrheumatic mitral (valve) insufficiency; E78.5 Hyperlipidemia, unspecified; K21.9 Gastro-esophageal reflux disease without esophagitis; Z79.899 Other long term (current) drug therapy; Z79.84 Long term (current) use of oral hypoglycemic drugs; E87.5 Hyperkalemia; Z68.30 Body mass index [BMI] 30.0-30.9, adult; E11.65 Type 2 diabetes mellitus with hyperglycemia; E87.70 Fluid overload, unspecified; I48.91 Unspecified atrial fibrillation; K56.41 Fecal impaction; B96.20 Unspecified Escherichia coli [E. coli] as the cause of diseases classified elsewhere; I99.8 Other disorder of circulatory system
CPT/HCPCS: 31500; 31720; 36415; 36430; 36556; 36569; 36600; 36620; 71010; 71020; 71035; 74000; 76705; 76775; 80048; 80053; 80069; 80076; 81001; 82150; 82330; 82803; 82805; 82947; 82962; 83036; 83540; 83550; 83605; 83735; 83880; 84100; 84132; 84145; 84295; 84484; 85014; 85018; 85025; 85049; 85347; 85379; 85384; 85610; 85730; 86850; 86900; 86901; 86920; 87040; 87070; 87077; 87086; 87184; 87186; 87205; 87493; 87493-59; 87641; 89055; 92950; 93005; 93312; 93320; 93325; 93880; 93925; 93971; 94002; 94003; 94640; 94660; 94667; 94668; 94770; 97110-GO; 97110-GP; 97161-GP; 97164-GP; 97166-GO; 97530-GP; 97535-GO; A9270-GY; C1713; C1725; C1751; C1769; C1894; C8929; C9113; G8978-CK-GP; G8978-CM-GP; G8979-CJ-GP; G8979-CL-GP; G8979-CM-GP; G8980-CL-GP; J0282; J0610; J0690; J1120; J1205; J1644; J1940; J2150; J2185; J2250; J2370; J2405; J2440; J2543; J2720; J2765; J3010; J3370; J3475; J3480; P9016; P9045; P9047; Q9957